=== PATIENT | male | born 1935 | race Caucasian/White ===

== ENCOUNTER 2018-03-20 11:00 | Observation (INO) | payer OTHER ==
[~2018-03-20] VITALS: Ht 172.7 cm; Wt 75.0 kg
--- NOTE | ~2018-03-20 | OP ---
PATIENT NAME: FLORENCE FARIAS MEDICAL RECORD: [id number] :37 LOCATION:D.M2 D.2119 ADMISSION DATE:03/20/18 SURGEON: KARI SO MD DATE OF OPERATION: 03/20/2018 PROCEDURES: Left heart catheterization, selective coronary angiography, right femoral artery approach. CATHETERS: A 5-Lithuanian sheath, 5/4 left and right Castillo, 5/4 pig. The procedure was well tolerated. The patient returned to [place], sheath removed. ExoSeal device was placed. FINDINGS: Left ventriculography in 30-degree BEAVERS view shows basically a mid anterior wall down to the anterior apex and apical inferior region. Overall, function reduced 30% to 35%. CORONARY ANATOMY: LEFT MAIN: Tapers to about a 50% stenosis. 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 CIRCUMFLEX: There is a ramus OM branch without stenosis. There is probably OM1, filling late distally from left to left collaterals. The terminal circumflex itself is diffusely stenosed about 80%, this is a small vessel, not supplying a lot of myocardium. RIGHT CORONARY ARTERY: Has previously placed stent, this is widely patent. Subclavian injection was performed using a multipurpose and glide catheter to get out. This showed some ghost filling of MORENO and a patent stent to the saphenous graft. Aortic root injection was performed. This showed no saphenous graft spilling. No significant AI. IMPRESSION: Changes difficult to tell where the ischemia is coming from. Certainly, given marked collateral sufficiency, the terminal circumflex itself has a small vessel with TANK flow distally, so would not intervene on this at this point. Doubt infarct related artery. Will be continued on antiplatelets. We will add ELIOT inhibitor and beta blockade to medical regime. Pacemaker will be interrogated in the a.m. TRANSINT:[id number] Voice Confirmation ID: [id number] DOCUMENT ID: [id number] KARI SO MD at 1418 CC: [id number] DICTATION DATE: 03/20/18 1731 [employer] FACTORY WORKER: 03/21/18 0129 DIS IN 03/21/18 [facility] [address] [place] [address]
--- NOTE | ~2018-03-20 | HEMODYNAMI ---
PATIENT:FLORENCE FARIAS MEDICAL RECORD: [id number] : 37 LOCATION:DPALMER ADMISSION DATE: 03/20/18 Generatedon:03/20/201817:24 Patient name: FLORENCE FARIAS Patient #: [id number] SSN: : 1935 Date of study: 03/20/2018 Page: Of Hemodynamic Procedure Report Patient Data Patient Demographics Procedure consent was obtained First Name: FLORENCE Gender: Male Last Name: DINORA : 1935 Patient #: [id number] Age: 82 year(s) Race: Unknown Additional ID: [id number] Contact details [address]: [address] [place] [address] State: [place] City: [place] Zip code: [address] Past Medical History Allergies Allergen Reaction Date Comments Reported Other allergy 03/20/2018 cephalexin Admission Admission Data Admission Date: 03/20/2018 Admission Time: 15:58 Procedure Procedure Types Cath Procedure Diagnostic Procedure LHC LHC w/Coronaries w/Grafts Sedation Charges Moderate Sedation up to 15 minutes Procedure Description Procedure Date Procedure Date: 03/20/2018 Procedure Start Time: 16:47 Procedure End Time: 17:24 Procedure Staff Name Function Roshan Myles MD Performing Physician Vivian Villagomez RT Monitor Alphonse Caro RN Nurse Mikael De La Torre RT Scrub Procedure Data Cath Procedure Fluoroscopy Diagnostic fluoroscopy Total fluoroscopy Time: 7 time: 7 min min Diagnostic fluoroscopy Total fluoroscopy dose: dose: 1027 mGy 1027 mGy Contrast Material Contrast Material Type Amount (ml) Isovue 300 165 Entry Location Entry Primary Successful Side Size Upsize Upsize Entry Closure Succes sful Closure Location (Fr) 1 (Fr) 2 (Fr) Remarks Device Remarks Femoral Right 6 Fr Exoseal artery Short Estimated blood loss: 10 ml Diagnostic catheters Device Type Used For End Catheter Placement MULTIPACK JL 4.0 5Fr Left Coronary catheter Angiography MULTIPACK 3DRC 5Fr SVG Angiography catheter MULTIPACK 3DRC 5Fr Internal mammary catheter arteriography DIAGNOSTIC MPA-2 5Fr Internal mammary catheter ([id number]) arteriography MULTIPACK Pigtail 5 Fr LV Angiography catheter MULTIPACK 3DRC 5Fr Right Coronary catheter Angiography MULTIPACK Pigtail 5 Fr Aortic Root catheter Angiography Procedure Complications No complications Procedure Medications Medication Administration Route Dosage Oxygen NC 2 l/min Heparin Flush Bag added to field 2 bags (1000units/500ml NS) 0.9% NaCl I.V. 100 ml/hr Fentanyl I.V. 50 mcg Versed I.V. 1 mg Fentanyl I.V. 50 mcg Versed I.V. 1 mg Heparin Bolus I.V. 4000 units Hemodynamics Rest Heart Rate: 83 (bpm) Pressure Samples Time Site Value (mmHg) Purpose Heart Use Rate(bpm) 16:59 LV 106/44,15 EDP 129 17:00 AO 126/45(88) Pullback 106 17:00 LV 101/11,10 Pullback 106 Gradients Valve Time Site 1 Site 2 Mean SEP/DFP Peak To Heart Use (mmHg) (sec/min) Peak Rate (mmHg) (bpm) Aortic 17:00 LV AO 0 3 0 106 101/11,10 126/45(88) Calculations Valve P-P Mean Valve Index Valve Source Name Gradient Area Flow (cm2) Aortic 0 0 0 0 Snapshots Pre Cath Intra NCS Post Cath Vital Signs Time Heart Resp SPO2 etCO2 NIBP (mmHg) Rhythm Pain Sedation Rate (ipm) (%) (mmHg) Status Level (bpm) 16:39:54 97 17 100 0 166/106(149) NSR 0 (11) 10(A) , No pain 16:44:10 90 17 100 0 137/84(119) NSR 0 (11) 10(A) , No pain 16:48:16 84 16 100 0 101/73(89) NSR 0 (11) 10(A) , No pain 16:52:16 87 17 99 0 110/82(95) NSR 0 (11) 9(A) , No pain 16:56:21 87 16 95 0 104/72(84) NSR 0 (11) 9(A) , No pain 17:00:25 85 17 98 0 110/74(98) NSR 0 (11) 9(A) , No pain 17:04:29 86 17 94 0 113/81(96) NSR 0 (11) 9(A) , No pain 17:08:33 115 16 98 0 94/81(90) NSR 0 (11) 9(A) , No pain 17:13:01 115 17 100 0 118/89(109) NSR 0 (11) 9(A) , No pain 17:17:03 118 13 100 0 132/101(111) NSR 0 (11) 9(A) , No pain 17:21:13 61 17 100 0 127/84(120) NSR 0 (11) 9(A) , No pain Medications Time Medication Route Dose Verified Delivered Reason Notes Effectiveness by by 16:44:31 Oxygen NC 2 Roshan Cunha Per physician l/min St Cesar Caro RN, MD 16:44:39 Heparin Flush added 2 Roshan Bennetty used for Bag to bags St Cesar Caro RN procedure (1000units/500ml field NS) 16:44:58 0.9% NaCl I.V. 100 Roshan Bennetty Per physician ml/hr St Cesar Caro RN, MD 16:49:15 Fentanyl I.V. 50 Roshan Cunha for sedation [facility] [place] Cesar Caro RN, MD 16:49:22 Versed I.V. 1 mg Roshan Bennetty for sedation St Cesar Caro RN, MD 16:57:49 Fentanyl I.V. 50 Roshan Bennetty for sedation mcg [facility] Cesar Caro RN, MD 16:57:53 Versed I.V. 1 mg Roshan Cunha for sedation St Cesar Caro RN, MD 17:02:20 Heparin Bolus I.V. 4000 Roshan Bennetty for units St Cesar Caro RN anticoagulation Procedure Log Time Note 16:06:33 Time tracking: Regular hours (M-F 7:00 - 5:00) 16:06:37 Plan of Care:Hemodynamics will remain stable., Cardiac rhythm will remain stable., Comfort level will be maintained., Respiratory function will remain adequate., Patient/ family verbilizes understanding of procedure., Procedure tolerated without complication., Recovers from procedure without complications.. 16:15:37 Alphonse Caro RN sent for patient. Start room use. 16:32:18 Patient received from ED to CCL 1 Alert and oriented. Tansferred to table in Supine position. 16:32:19 Warm blankets applied, and clara hugger turned on for patient comfort. 16:32:19 Correct patient and procedure confirmed by team. 16:32:21 Signed procedure consent form obtained from patient. 16:32:21 ECG and BP/O2 sat monitors applied to patient. 16:32:22 Full Disclosure recording started 16:38:44 Vital chart was started 16:39:03 Rhythm: sinus rhythm 16:39:14 H&P Date Dictated: 03/20/2018 Emergent; H&P N/A. 16:40:00 Pre-procedure instructions explained to patient. 16:40:01 Pre-op teaching completed and patient verbalized understanding. 16:40:03 Family unavailable. 16:40:05 Patient NPO since Midnight. 16:40:18 Patient allergic to Other allergycephalexin 16:40:20 Is the patient allergic to Iodine/contrast media? No. 16:40:21 Is patient on blood thinner?Yes 16:40:24 ACC The patient was administered the following blood thiners within the last 24 hours: ACCAspirin, ACCPlavix 16:40:26 Patient diabetic? No. 16:40:30 Previous problem with sedation/anesthesia? No ? 16:40:31 Snore? Yes 16:40:32 Sleep apnea? Yes 16:40:34 Deviated septum? No 16:40:35 Opens mouth fully? Yes 16:40:35 Sticks out tongue? Yes 16:40:38 Airway obstruction? No ? 16:40:43 Dentures? Yes IN 16:40:46 Pre procedure: right dorsailis pedis pulse 1+ Palpable, but thready & weak; easily obliterated 16:40:48 Patient pain scale 0/10 ?. 16:40:57 IV patent on arrival in right hand with 0.9% NaCl at [facility]. 16:40:59 Lab results completed and on chart. 16:41:03 Right groin area was prepped with chlora-prep and draped in sterile fashion 16:41:04 Alarms reviewed by R. N. 16:41:04 Sharps counted by scrub and verified by R.N. 16:41:06 Final Timeout: patient, procedure, and site verified with staff and physician. All members of the team are in agreement. 16:41:07 Right groin site verified by team. 16:41:10 Physical assessment completed. ASA score P 2 - A patient with mild systemic disease as per Roshan Myles MD. 16:41:13 Sedation plan: IV Moderate Sedation Medication:Versed, Fentanyl 16:44:31 Oxygen 2 l/min NC was administered by Alphonse Caro RN; Per physician; 16:44:39 Heparin Flush Bag (1000units/500ml NS) 2 bags added to field was administered by Alphonse Caro RN; used for procedure; 16:44:48 Use device set Femoral Dx 16:44:49 ACIST Syringe (52912) opened to sterile field. 16:44:49 Bag Decanter (2002S) opened to sterile field. 16:44:50 Medline Cath Pack ([id number]) opened to sterile field. 16:44:50 DIAGNOSTIC WIRE .035 260cm J wire (330379) opened to sterile field. 16:44:51 ACIST Hand Control (59713) opened to sterile field. 16:44:52 ACIST Manifold (88621) opened to sterile field. 16:44:53 DIAGNOSTIC Multipack 5Fr catheter set (OS6281) opened to sterile field. 16:44:54 Tegaderm 4 x 4 (1626W) opened to sterile field. 16:44:58 0.9% NaCl 100 ml/hr I.V. was administered by Alphonse Caro RN; Per physician; 16:45:11 SHEATH 6FR [place] (OIJ634) opened to sterile field. 16:45:23 Use device set JUDAH PCI 16:45:31 INFLATOR Merit BasixCompak (NW7913) opened to sterile field. 16:45:33 WHISPER 300cm guide wire ([id number]) opened to sterile field. 16:47:31 Procedure started. 16:47:34 Local anesthetic to right femoral artery with Lidocaine 2% by Roshan Myles MD.INITIAL ACCESS ONLY 16:47:43 A 6 Fr Short sheath was inserted into the Right Femoral artery 16:47:50 Baseline sample Acquired. 16:48:26 Zero performed for pressure channel P1 16:49:07 A MULTIPACK JL 4.0 5Fr catheter was advanced over the wire and used for Left Coronary Angiography. 16:49:15 Fentanyl 50 mcg I.V. was administered by Alphonse Caro RN; for sedation; 16:49:22 Versed 1 mg I.V. was administered by Alphonse Caro RN; for sedation; 16:50:23 Procedure type changed to Cath procedure, Diagnostic procedure, LHC, LHC w/Coronaries w/Grafts, Sedation Charges, Moderate Sedation up to 15 minutes 16:50:37 IV Extension Set opened to sterile field. 16:51:09 Catheter removed. 16:52:30 A MULTIPACK 3DRC 5Fr catheter was advanced over the wire and used for Right Coronary Angiography. 16:53:08 A MULTIPACK 3DRC 5Fr catheter was advanced over the wire and used for SVG Angiography. occluded 16:54:53 A MULTIPACK 3DRC 5Fr catheter was advanced over the wire and used for Internal mammary arteriography. 16:54:55 Catheter removed. 16:56:47 GLIDE WIRE ANGLE 260cm (DG9688) opened to sterile field. 16:57:26 A DIAGNOSTIC MPA-2 5Fr catheter ([id number]) was advanced over the wire and used for Internal mammary arteriography. occluded 16:57:34 Exch [place] wire advanced. 16:57:49 Fentanyl 50 mcg I.V. was administered by Alphonse Caro RN; for sedation; 16:57:53 Versed 1 mg I.V. was administered by Alphonse Caro RN; for sedation; 16:58:29 Catheter removed. 16:58:43 A MULTIPACK Pigtail 5 Fr catheter was advanced over the wire and used for LV Angiography. 17:00:00 LV gram done using BEAVERS 17:00:14 Injector settings: Ml/sec: 10, Volume: 20, 17:00:15 Catheter removed. 17:01:33 6 Fr XBLAD 3.5 guide catheter was inserted over the wire 17:02:20 Heparin Bolus 4000 units I.V. was administered by Alphonse Caro RN; for anticoagulation; 17:02:45 WHISPER wire advanced. 17:06:35 Wire removed. 17:06:36 Guide catheter removed. 17:09:14 A MULTIPACK Pigtail 5 Fr catheter was advanced over the wire and used for Aortic Root Angiography. 17:10:09 Catheter removed. 17:10:18 EXOSEAL 6Fr (EX600) opened to sterile field. 17:10:51 Sheath removed intact; hemostasis achieved with Exoseal to the Right Femoral artery. 17:10:59 Procedure ended.(Physican Out) 17:12:37 Fluoroscopy time 07.00 minutes. 17:13:18 Flurop Dose total: 1027 17:13:18 Fluoroscopy dose: 1027 mGy 17:13:41 Contrast amount:Isovue 300 165ml. 17:13:42 Sharps counted by scrub and verified by R.N. 17:13:44 Insertion/operative site no bleeding no hematoma. 17:13:46 Post-op/insertion site Right Femoral artery dressed using a 4 x 4 and Tegaderm. 17:13:50 Post right femoral artery:stable, clean and dry 17:13:51 Post Procedure Pulses reassessed and unchanged 17:13:55 Post-procedure physical assessment completed. ASA score P 2 - A patient with mild systemic disease as per Roshan Myles MD. 17:13:57 Post procedure rhythm: unchanged. 17:13:59 Estimated blood loss: 10 ml 17:14:01 Post procedure instruction explained to patient.Patient verbalizes understanding. 17:14:01 Patient needs reinforcement of post procedure teaching. 17:14:06 Procedure Complication : No complications 17:14:08 See physician's report for complete and final results. 17:15:40 Procedure and supply charges have been captured, reviewed, submitted and are correct. 17:24:01 Report given to PCU. 17:24:05 Vital chart was stopped 17:24:18 Patient transfered to PCU with Bed. 17:24:28 Procedure ended. 17:24:28 Full Disclosure recording stopped 17:24:31 End room use (Document Last) 17:24:31 End room use (Document Last) Device Usage Item Name Manufacture Quantity Catalog Hospital Part Current Minimal L ot# / Number Charge Number Stock Stock Serial# Code ACIST Acist 1 70840 070391 013315 818156 20 Syringe Medical (34288) Systems Inc Bag Microtek 1 193018 44447 778530 5 Decanter Medical Inc. () Medline Medline 1 [id number] 353823 57376 786346 5 Cath Pack ([id number]) DIAGNOSTIC [facility] Carmelo 1 211264 620327 195723 331327 30 WIRE .035 260cm J wire (653078) ACIST Hand Acist 1 86183 322843 229140 021744 5 Control Medical (16651) Systems Inc ACIST Acist 1 75107 212149 817694 004368 5 Manifold Medical (85823) Systems Inc DIAGNOSTIC Cardinal 1 AQ1922 214238 59440 624496 30 Multipack Health 5Fr catheter set (JB4306) Tegaderm 4 3M 1 1626W 450403 496873 532956 5 x 4 (1626W) SHEATH 6FR Terumo 1 AHU791 655257 000859 214523 40 [place] (BCB612) INFLATOR Merit 1 UY5099 486552 555773 696661 15 [facility] BasixCompak (YF4178) WHISPER Hol[place] 1 [id number] 754764 971880 017450 5 300cm guide Vascular wire (5478891ML) MULTIPACK Cardinal 1 603605 5 JL 4.0 5Fr Health catheter IV Hospira 1 46022-07 292661 75206 634362 5 Extension Set MULTIPACK Cardinal 1 132389 5 3DRC 5Fr Health catheter GLIDE WIRE Terumo 1 HG0144 916817 727488 633704 5 ANGLE 260cm (MD4974) DIAGNOSTIC Cardinal 1 809199J 400970 176676 063317 5 MPA-2 5Fr Health catheter (103389R) MULTIPACK Cardinal 1 824464 5 Pigtail 5 Health Fr catheter EXOSEAL 6Fr Cardinal 1 EX600 823823 269445 455920 10 (EX600) Health Signature Audit Homer Stage Time Signature Unsigned Intra-Procedure 03/20/2018 Vivian 5:24:41 PM Counts RT(R) Signatures Monitor : Vivian Signature : Counts RT Date : Time : [place] [id number] [place] [address]
--- NOTE | ~2018-03-20 | HP ---
PATIENT: FLORENCE FARIAS MEDICAL RECORD: [id number] ACCOUNT: [id number] LOCATION:[address] : 36 ADMISSION DATE: 03/20/18 PCP: No PCP HISTORY AND PHYSICAL EXAMINATION HISTORY OF PRESENT ILLNESS: An 82-year-old gentleman with a history of recent intervention at the [place] Saturday. He also had chest pain, shortness of breath, ST-segment changes consistent with hyperacute T-wave changes with anterior occlusion, he was transferred on an emergent basis. PAST MEDICAL HISTORY: Includes, 1. History of hypertension. 2. Hyperlipidemia. PHYSICAL EXAMINATION: GENERAL: Somewhat uncomfortable-appearing gentleman in no acute distress. NECK: No bruits noted. HEART: Regular. LUNGS: Kennedy clear. EXTREMITIES: Pulses 2+ with no edema. DIAGNOSTIC DATA: ECG change as described above. IMPRESSION: Suspect acute stent closure to the pathology laboratory technologist on an urgent basis. TRANSINT:[id number] Voice Confirmation ID: [id number] DOCUMENT ID: [id number] KARI SO MD at 1418 CC: [id number] DICTATION DATE: 03/20/18 1640 WRAPPER LAYER: 03/20/18 1904 DIS IN 03/21/18 [id number] [place] [address]
--- NOTE | ~2018-03-20 | DS ---
PATIENT:FLORENCE FARIAS :37 MEDICAL RECORD: [id number] DISCHARGE SUMMARY ADMISSION DATE: 03/20/18 DISCHARGE DATE: 03/21/18 DATE OF ADMISSION: 03/20/2018. DATE OF DISCHARGE: 03/21/2018. FINAL DIAGNOSIS: Non ST elevation myocardial infarction. BRIEF HISTORY AND HOSPITAL COURSE: This is an 82-year-old gentleman with history of intervention at the [facility] on Saturday began having acute coronary syndrome. Beds were not available at the [facility], so he was transferred here, found to have snowploughed branch, unable to be opened. The EF was about 35%, chronic totally occluded OM, chronic totally occluded LAD. IMPRESSION: Suspect he will continue to have angina. I discussed this in detail. He will be discharged on ARB, beta blockade, Plavix. I will see him back in [place] next available. TRANSINT:[id number] Voice Confirmation ID: [id number] DOCUMENT ID: [id number] KARI SO MD at 1418 CC: [id number] DICTATION DATE: 03/21/18 0742 CREDIT HISTORIAN: 03/21/18 0755 DIS IN 03/21/18 [facility] [address] [place] [address]
[2018-03-20] MEDS ORDERED: ELIQUIS2.5 MG PO (16:13)
[2018-03-20] MEDS ORDERED: PLAVIX75 MG PO (16:14)
[2018-03-20] MEDS ORDERED: LIPITOR80 MG PO (16:14)
[2018-03-20] MEDS ORDERED: FEXMID7.5 MG PO (16:15)
[2018-03-20] MEDS ORDERED: FERROUS SULFAT325 MG PO (16:15)
[2018-03-20] MEDS ORDERED: GABAPENTIN100 MG PO (16:16)
[2018-03-20] MEDS ORDERED: ISOSORBIDE DINI20 MG PO (17:55)
[2018-03-20] MEDS ORDERED: TOPROL XL100 MG PO (17:55)
[2018-03-20] MEDS ORDERED: NITROSTAT0.4 MG SL (17:56)
[2018-03-20] MEDS ORDERED: ACTIGALL 300 M300 MG PO (17:56)
[2018-03-20 18:13] VITALS: BP 115/74; Ht 172.7 cm; Wt 75.0 kg
[2018-03-20 19:05] LABS: BASOPHILS 0.1 % (0-2); EOSINOPHILS 1.9 % (0-7); HEMOGLOBIN 11.1 g/dL (13.5-17.5); IMMATURE GRANULOCYTES 0.3 % (0-5); LYMPHOCYTES 15.8 % (15-50); MCH 28.6 pg (26.0-34.0); MCHC 32.6 g/dL (31.0-37.0); MCV 87.6 fL (80.0-100.0); MEAN PLATELET VOLUME 9.9 fL (7.4-10.4); MONOCYTES 6.6 % (2-11); NEUTROPHILS 75.3 % (40-80); PLATELET COUNT 265 10x3/uL (130-400); RBC 3.88 10x6/uL (4.20-6.10)
[2018-03-20 19:46] LABS: ALBUMIN 3.1 g/dL (3.4-5.0); ALKALINE PHOSPHATASE 82 U/L (46-116); ALT (SGPT) 25 U/L (10-68); BILIRUBIN - TOTAL 0.57 mg/dL (0.2-1.3); CALC OSMOLALITY 278 mosm/kg (275-300); CALCIUM 8.7 mg/dL (8.5-10.1); CARBON DIOXIDE 21.2 mmol/L (21.0-32.0); CHLORIDE - SERUM 106 mmol/L (98-107); GLUCOSE 97 mg/dL (74-106); POTASSIUM - SERUM 4.6 mmol/L (3.5-5.1); PROTEIN - SERUM 6.7 g/dL (6.4-8.2); SODIUM 139 mmol/L (136-145); UREA NITROGEN 15 mg/dL (7-18); eGFR NON AFRICAN AMERICAN 76 mL/min (90-120)
[2018-03-20 20:00] VITALS: BP 119/77
[2018-03-20 20:08] LABS: TROPONIN-I 0.743 ng/mL (0.000-0.060)
[2018-03-20 20:09] LABS: INR 1.67 (0.85-1.17); PROTIME 19.2 SECONDS (11.6-15.0)
[2018-03-20 20:10] LABS: APTT 71.5 SECONDS (22.8-39.4)
[2018-03-21] VITALS: BP 103/64
[2018-03-21 04:00] VITALS: BP 120/78
[2018-03-21 08:27] VITALS: BP 114/77
[2018-03-21] MEDS ORDERED: COZAAR25 MG PO (14:01)
[2018-03-21] MEDS ORDERED: ASPIRIN81 MG PO (14:01)
== END 2018-03-21 09:00 | disposition home or self-care (01) ==
LOC: EDSTATUS 11:00 → D.M2 15:58 → D.ER 15:58 → D.CATH 15:58 → OBSVTIME 15:58 → D.M2 17:26 → D.CATH 17:26 → D.M2 03-21 09:00
PROVIDERS: Emergency Medicine
DX: I21.4 Non-ST elevation (NSTEMI) myocardial infarction (principal); I25.110 Atherosclerotic heart disease of native coronary artery with unstable angina pectoris; I25.82 Chronic total occlusion of coronary artery

== ENCOUNTER 2019-06-22 21:11 | Inpatient (IN) | payer OTHER ==
[~2019-06-22] VITALS: Ht 172.7 cm; Wt 76.4 kg
--- NOTE | ~2019-06-22 | HEMODYNAMI ---
PATIENT:FLORENCE FARIAS MEDICAL RECORD: [id number] : 37 [facility] [id number] ADMISSION DATE: 06/22/19 Generatedon:06/24/201910:08 Patient name: FLORENCE FARIAS Patient #: [id number] : 1935 Date of study: 06/24/2019 Page: Of Hemodynamic Procedure Report Patient Data Patient Demographics Procedure consent was obtained First Name: FLORENCE Gender: Male Last Name: DINORA : 1935 Patient #: [id number] Age: 83 year(s) Race: SSN: [id number] Additional ID: [id number] Contact details [address]: [address] [place] [address] State: [place] City: [place] Zip code: [address] Past Medical History History of disease Date Diagnosis Comments CAD Allergies Allergen Reaction Date Comments Reported Other allergy 03/20/2018 cephalexin Other allergy 06/23/2019 cephlexin Other allergy 06/24/2019 CEPHALEXIN Admission Admission Data Admission Date: 06/22/2019 Admission Time: 21:47 Arrival Date: 06/22/2019 Arrival Time: 21:47 Admit Source: Emergency Insurance Payor: [facility] Room #: D.[address]10 [facility] #: [id number] Height (in.): 68.11 BSA: 1.92 (m2) Height (cm.): 173 BMI: 26.06 (kg/m2) Weight (lbs.): 171.96 Weight (kg.): 78 Lab Results Lab Result Date: 06/24/2019 Lab Result Time: 0:00 Biochemistry Name Units Result Min Max BUN mg/dl 24 --(----)-* 7 18 CK-MB ng/ml 2.4 --(--*-)-- 0 3.6 Creatinine mg/dl 1.2 --(---*)-- 0.6 1.3 eGFR ml/min 61.96523 *-(----)-- 90 120 NONAFRICAN Troponin l ng/ml 1.41 --(----)-* 0 0.06 CBC Name Units Result Min Max Hematocrit % 40.7 -*(----)-- 42 54 Hemoglobin g/dl 12.8 -*(----)-- 13.5 17.5 Procedure Procedure Types Cath Procedure Diagnostic Procedure Sedation Charges Moderate Sedation up to 30 minutes PCI Procedure Coronary Atherectomy Atherectomy w/Stent Coronary Initial Hemochron ACT Test Procedure Description Procedure Date Procedure Date: 06/24/2019 Procedure Start Time: 9:33 Procedure End Time: 10:04 Procedure Staff Name Function Gatito Haji MD Performing Physician Nadja Dominguez RT Scrub Dedrick Caballero RN Nurse Marta Burgess RN Nurse Chio Kennedy RT Monitor Indication Chest pain Procedure Data Cath Procedure Fluoroscopy Diagnostic fluoroscopy Total fluoroscopy Time: time: 12.1 min 12.1 min Diagnostic fluoroscopy Total fluoroscopy dose: 658 dose: 658 mGy mGy Contrast Material Contrast Material Type Amount (ml) Isovue 300 118 Entry Location Entry Primary Successful Side Size Upsize Upsize Entry Closure Succes sful Closure Location (Fr) 1 (Fr) 2 (Fr) Remarks Device Remarks Femoral Left 7 Fr Exoseal artery Short Estimated blood loss: 10 ml Procedure Complications No complications Procedure Medications Medication Administration Route Dosage Oxygen etCO2 Nasal cannula 2 l/min Lidocaine 2% added to field 20 Heparin Flush Bag added to field 2 bags (1000units/500ml NS) 0.9% NaCl I.V. 100 ml/hr Benadryl I.V. 50 mg Fentanyl I.V. 50 mcg Versed I.V. 1 mg Heparin Bolus I.V. 4000 units Integrilin (Bolus 6.8 ml 2mg/ml) Fentanyl I.V. 50 mcg Versed I.V. 1 mg Plavix P.O. 600 mg Hemodynamics Rest BSA: 1.92 (m2) HGB: 12.8 (g/dl) O2 Consumption: Estimated: 218.96 (ml/min) O2 Co nsumption indexed: Estimated:114.04 (ml/min/m) Heart Rate: 70 (bpm) Snapshots Pre Cath Intra NCS Post Cath Vital Signs Time Heart Resp SPO2 etCO2 NIBP (mmHg) Rhythm Pain Sedation Rate (ipm) (%) (mmHg) Status Level (bpm) 9:09:47 67 19 99 20.2 171/89(125) Paced 0 (11) 10(A) , No pain 9:14:07 72 17 98 17.2 162/96(112) Paced 0 (11) 10(A) , No pain 9:18:27 71 16 96 17.9 155/86(107) Paced 0 (11) 10(A) , No pain 9:22:43 73 18 98 16.4 145/83(123) Paced 0 (11) 10(A) , No pain 9:26:59 73 16 96 10.4 139/86(119) Paced 0 (11) 10(A) , No pain 9:31:11 28 17 96 0 137/80(122) Paced 0 (11) 10(A) , No pain 9:35:19 28 18 97 0 116/62(92) Paced 0 (11) 9(A) , No pain 9:39:27 67 20 95 16.4 90/67(79) Paced 0 (11) 9(A) , No pain 9:44:13 65 19 97 1.4 121/73(92) NSR w/ ST 0 (11) 9(A) Elevation , No pain 9:48:25 60 17 97 0 118/73(102) NSR w/ ST 0 (11) 9(A) Elevation , No pain 9:52:35 59 18 97 0.7 123/70(106) NSR w/ ST 0 (11) 9(A) Elevation , No pain 9:56:45 62 15 97 0 135/78(120) NSR w/ ST 0 (11) 10(A) Elevation , No pain 10:00:59 61 14 96 0 140/77(116) Paced 0 (11) 10(A) , No pain 10:05:13 62 12 94 0 124/77(96) Paced 0 (11) 10(A) , No pain Medications Time Medication Route Dose Verified Delivered Reason Notes Effectiveness by by 9:08:45 Oxygen etCO2 2 Gatito Marta used for Nasal l/min Adithya Burgess procedure cannula RN 9:08:52 Lidocaine 2% added 20ml Gatito Mederos for local to vial Adithya Haji MD anesthetic field 9:08:58 Heparin Flush added 2 Gatito Mederos used for Bag to bags Adithya Haji MD procedure (1000units/500ml field NS) 9:09:06 0.9% NaCl I.V. 100 Gatito Tse Per physician ml/hr Adithya Caballero RN 9:11:48 Benadryl I.V. 50 mg Marta Marta Per physician Jenifer Burgess RN RN 9:33:11 Fentanyl I.V. 50 Marta Marta for sedation mcg Jenifer Burgess RN RN 9:33:19 Versed I.V. 1 mg Marta Marta for sedation Jenifer Burgess RN RN 9:37:33 Heparin Bolus I.V. 4000 Marta Marta for hepar in units Jenifer Burgess anticoagulation verified RN RN with dedrick caballero rn 9:39:24 Integrilin 6.8 Marta Marta 3.2ml (Bolus 2mg/ml) ml Jenifer Burgess wasted RN RN 9:54:18 Fentanyl I.V. 50 Marta Marta for sedation mcg Jenifer Burgess RN RN 9:54:23 Versed I.V. 1 mg Marta Marta for sedation Jenifer Burgess RN RN 10:02:34 Plavix P.O. 600 Marta Marta for mg Jenifer Burgess antiplatelet RN RN therapy Procedure Log Time Note 8:03:24 Informed consent obtained and on chart 8:03:38 Patient Height : 68.11 inches 8:03:38 Patient Weight : 171.96 lbs 8:03:52 Indication : Chest pain 8:04:59 Diagnostic Cath Status : Urgent 8:05:11 Procedure Status Urgent Heart Cath (IP). 8:05:23 Time tracking: Regular hours (M-F 7:00 - 5:00) 8:05:31 Plan of Care:Hemodynamics will remain stable., Cardiac rhythm will remain stable., Comfort level will be maintained., Respiratory function will remain adequate., Patient/ family verbilizes understanding of procedure., Procedure tolerated without complication., Recovers from procedure without complications.. 8:13:48 Lab Result : Creatinine 1.2 mg/dl 8::48 Lab Result : BUN 24 mg/dl 8::48 Lab Result : CK-MB 2.4 ng/ml 8:13:48 Lab Result : Hemoglobin 12.8 g/dl 8::48 Lab Result : Hematocrit 40.7 % 8:13:48 Lab Result : eGFR NONAFRICAN 61.64639 ml/min 8:13:48 Lab Result : Troponin l 1.41 ng/ml 8:15:30 Patient allergic to Other allergyCEPHALEXIN 8:23:44 Procedure delayed due to: DUE TO PT WANTING TO WAIT FOR HIS FAMILY 8:26:26 Lab results completed and on chart. 8:26:33 Stress Test: no; N/A ? 8:26:40 Risk of Mortality: 1.7 8:26:45 Risk of blood transfusion: 4.6 8:26:52 Risk of DWAIN: 7.8 8:27:34 ----Pre-sedation anethsthesia assessment.---- 8:27:39 Previous problem with sedation/anesthesia? No ? 8:27:42 Snore? Yes 8:27:53 Sleep apnea? Unknown 8:27:57 Deviated septum? No 8:28:08 Opens mouth fully? Yes 8:28:10 Sticks out tongue? Yes 8:28:19 Airway obstruction? Unknown ? 8:46:53 Dedrick Caballero RN sent for patient. Start room use. 8:53:55 ACC Patient presents with Non-STEMI CCS Anginal Class 4--Inability to carry out any physical activity w/o angina. Angina may occur at rest. 9:01:38 Patient received from ICU to CCL 1 Alert and oriented. Tansferred to table in Supine position. 9:01:39 Warm blankets applied, and clara hugger turned on for patient comfort. 9:01:40 Correct patient and procedure confirmed by team. 9:01:42 ECG and BP/O2 sat monitors applied to patient. 9:08:34 Vital chart was started 9:08:45 Oxygen 2 l/min etCO2 Nasal cannula was administered by Marta Burgess RN; used for procedure; Verbal order read back and verified. 9:08:52 Lidocaine 2% 20ml vial added to field was administered by Gatito Haji MD; for local anesthetic; Verbal order read back and verified. 9:08:58 Heparin Flush Bag (1000units/500ml NS) 2 bags added to field was administered by Gatito Haji MD; used for procedure; Verbal order read back and verified. 9:09:02 Baseline sample Acquired. 9:09:06 0.9% NaCl 100 ml/hr I.V. was administered by Dedrick Caballero RN; Per physician; Verbal order read back and verified. 9:09:10 Rhythm: sinus rhythm 9:09:12 Full Disclosure recording started 9:09:15 H&P Date Dictated: 06/24/2019 Within 30 days and on chart.. 9:09:16 Pre-procedure instructions explained to patient. 9:09:16 Pre-op teaching completed and patient verbalized understanding. 9:09:17 Family in patients room. 9:09:20 Is the patient allergic to Iodine/contrast media? No. 9:09:36 Pre procedure: left dorsailis pedis pulse 1+ Palpable, but thready & weak; easily obliterated 9:09:48 IV patent on arrival in left antecubital with 0.9% NaCl at [facility]. 9:09:53 Left groin area was prepped with chlora-prep and draped in sterile fashion 9:09:55 Alarms reviewed by R. N. 9:09:55 Sharps counted by scrub and verified by R.N. 9:10:09 Use device set CATH PACK 9:10:10 ACIST Syringe (21677) opened to sterile field. 9:10:11 ACIST Hand Control (89646) opened to sterile field. 9:10:11 ACIST Manifold (52604) opened to sterile field. 9:10:12 Medline Cath Pack ([id number]) opened to sterile field. 9:10:12 Bag Decanter (2002S) opened to sterile field. 9:10:13 EMERALD Guide Wire (502-482) opened to sterile field. 9:10:26 SHEATH 6FR Eight Mile (ZUF681) opened to sterile field. 9:10:27 CHOICE PT Extra Support 182cm wire ([id number]) opened to sterile field. 9:10:27 INFLATOR Merit BasixCompak (JV2299) opened to sterile field. 9:10:37 Airway obstruction? Yes COPD 9:10:45 Patient diabetic? No. 9:10:51 Is patient on blood thinner?Yes 9:11:01 Dentures? No ? 9:11:48 Benadryl 50 mg I.V. was administered by Marta Burgess RN; Per physician; Verbal order read back and verified. 9:12:03 ELIQUIS AND PLAVIX LAST DOSE ON THE 9:20:26 Zero performed for pressure channel P1 9:30:09 IV started by Dedrick Caballero RN inLt subclavian with a 22 gauge IV catheter with 0.9% NaCl at KVO. 9:30:30 IV left antecubital D/C'd due to other.. 9:31:57 --------ALL STOP TIME OUT------ ::57 Final Timeout: patient, procedure, and site verified with staff and physician. All members of the team are in agreement. 9:32:00 Left groin site verified by team. 9:32:03 Fire Safety Assessment: A--An alcohol-based skin anteseptic being used preoperatively., C--Open oxygen or nitrous oxide is being used., E--There are other possible contributors. 9:32:06 Physical assessment completed. ASA score P 3 - A patient with severe systemic disease as per Gatito Haji MD. 9:32:10 2) 60-89 Mildly reduced kidney function, and other findings (as for stage 1) point to kidney disease. 9:32:15 Maximum allowable contrast dose (3.7 X eGFR X 0.75)169 ml. 9:32:17 Sedation plan: IV Moderate Sedation Medication:Versed, Fentanyl 9:32:55 SHEATH 7FR [place] (YDE484) opened to sterile field. 9:32:59 Procedure started. 9:33:11 Fentanyl 50 mcg I.V. was administered by Marta Burgess RN; for sedation; Verbal order read back and verified. 9:33:19 Versed 1 mg I.V. was administered by Marta Burgess RN; for sedation; Verbal order read back and verified. 9:33:32 Local anesthetic to left femerol artery with Lidocaine 2% by Gatito Haji MD.INITIAL ACCESS ONLY 9:33:43 GUIDE 7FR AR 1.0 SH catheter ([id number]) opened to sterile field. 9:35:17 A 7 Fr Short sheath was inserted into the Left Femoral artery 9:36:01 7 Fr AR 1 SH guide catheter was inserted over the wire 9:37:33 Heparin Bolus 4000 units I.V. was administered by Marta Burgess RN; for anticoagulation; heparin verified with dedrick caballero rn Verbal order read back and verified. 9:38:07 CHOICE ES 182 wire advanced. 9:38:53 Pre PCI Site: Stebbins mRCA has 99% stenosis. 9:38:56 Wire advanced across lesion. 9:39:24 Integrilin (Bolus 2mg/ml) 6.8 ml was administered by Marta Burgess RN; ; 3.2ml wasted Verbal order read back and verified. 9:39:43 Inflate balloon Inflation number: 1 A EUPHORA 3.5 x 15 Balloon ([id number]) was prepped and advanced across the Mid RCA , then inflated to 21 JEANNETTE for 0:00 (min:sec) . 9:40:01 Inflation number: 1 The EUPHORA 3.5 x 15 Balloon ([id number]) was reinflated across the Prox RCA , to 21 JEANNETTE for 0:00 (min:sec) . 9:40:44 Balloon removed over the wire. 9:40:51 LASER ELCA 0.9 Rx atherectomy catheter (180151) opened to sterile field. 9:44:04 Laser pass to mRCA with Fluence of 80 and Rate of 40. 9:46:54 Laser catheter removed. 9:46:55 Laser total pulses delivered: 3392 9:46:57 Laser total treatment time: 1 minutes 24 seconds 9:48:34 The NC EUPHORA 3.5 x 12 balloon ([id number]) was advanced and then removed because of failure to cross lesion 9:48:48 CHOICE PT Extra Support 182cm wire ([id number]) opened to sterile field. 9:49:10 CHOICE ES 182 ADVNACED A LEONORA WIRE 9:49:48 Inflation number: 2 The NC EUPHORA 3.5 x 12 balloon ([id number]) was reinflated across the Mid RCA , to 25 JEANNETTE for 0:00 (min:sec) . 9:50:09 Inflation number: 2 The NC EUPHORA 3.5 x 12 balloon ([id number]) was reinflated across the Prox RCA , to 25 JEANNETTE for 0:00 (min:sec) . 9:50:23 Inflation number: 3 The NC EUPHORA 3.5 x 12 balloon ([id number]) was reinflated across the Prox RCA , to 23 JEANNETTE for 0:00 (min:sec) . 9:51:07 Inflation number: 3 The NC EUPHORA 3.5 x 12 balloon ([id number]) was reinflated across the Mid RCA , to 25 JEANNETTE for 0:00 (min:sec) . 9:51:26 Balloon removed over the wire. 9:53:22 LEONORA WIRE REMOVED 9:53:50 Place stent Inflation Number: 4 A NERY RX 3.5 x 18 stent ([id number]) was prepped and advanced across the Mid RCA . The stent was deployed at 21 JEANNETTE for 0:00 (min:sec) . 9:54:12 Inflation number: 5 The stent balloon was then re-inflated across the Mid RCA to 21 JEANNETTE for 0:00 (min:sec) . 9:54:18 Fentanyl 50 mcg I.V. was administered by Marta Burgess RN; for sedation; Verbal order read back and verified. 9:54:23 Versed 1 mg I.V. was administered by Marta Burgess RN; for sedation; Verbal order read back and verified. 9:54:27 Stent catheter was removed intact over wire. 9:56:02 Place stent Inflation Number: 4 A NERY RX 4.0 x 12 stent ([id number]) was prepped and advanced across the Prox RCA . The stent was deployed at 19 JEANNETTE for 0:00 (min:sec) . 9:56:24 Stent catheter was removed intact over wire. 9:57:39 Place stent Inflation Number: 6 A NERY RX 3.0 x 18 stent ([id number]) was prepped and advanced across the Mid RCA . The stent was deployed at 17 JEANNETTE for 0:00 (min:sec) . 9:57:57 Wire removed. 9:58:27 Stent catheter was removed intact over wire. 9:58:27 Guide catheter removed. 9:58:38 EXOSEAL 7Fr (EX700) opened to sterile field. 9:59:27 Sheath removed intact; hemostasis achieved with Exoseal to the Left Femoral artery. 9:59:29 Procedure ended.(Physican Out) 10:01:52 Fluoroscopy time 12.10 minutes. 10:02:00 Fluoroscopy dose: 658 mGy 10:02:00 Flurop Dose total: 658 10:02:08 Dose Area Product 31334 mGy/cm. 10:02:18 Contrast amount:Isovue 300 118ml. 10:02:19 Maximum allowable dose exceeded? No. 10:02:21 Sharps counted by scrub and verified by R.N. 10:02:26 Post-op/insertion site Left Femoral artery dressed using a 4 x 4 and Tegaderm. 10:02:28 Post-procedure physical assessment completed. ASA score P 3 - A patient with severe systemic disease as per Gatito Haji MD. 10:02:32 Post procedure rhythm: unchanged. 10:02:33 Estimated blood loss: 10 ml 10:02:34 Plavix 600 mg P.O. was administered by Marta Burgess RN; for antiplatelet therapy; Verbal order read back and verified. 10:02:34 Post procedure instruction explained to patient.Patient verbalizes understanding. 10:02:35 Patient needs reinforcement of post procedure teaching. 10:03:06 Procedure type changed to Cath procedure, Diagnostic procedure, Sedation Charges, Moderate Sedation up to 30 minutes, PCI procedure, Coronary Atherectomy, Atherectomy w/Stent Coronary Initial, Hemochron ACT Test 10:03:22 ACT drawn and resulted at 196 seconds. (normal therapeutic range 180-240 seconds). 10:04:12 Procedure and supply charges have been captured, reviewed, submitted and are correct. 10:04:20 Procedure Complication : No complications 10:04:22 Vital chart was stopped 10:04:24 [facility] Findings: MVD- PCI performed (see procedure note) 10:04:27 Operative report dictated upon procedure completion. 10:04:28 See physician's report for complete and final results. 10:04:33 Report given to ICU. 10:04:36 Patient transfered to ICU with Bed. 10:04:38 Procedure ended. 10:04:38 Full Disclosure recording stopped 10:04:46 ACC-PCI Only Patient was given prescriptions, or instructed by Gatito Haji MD to start/continue the following medications upon discharge: Plavix 10:04:47 End room use (Document Last) 10:07:24 End room use (Document Last) 10:07:49 End room use (Document Last) Intervention Summary Intervention Notes Time ActionType Lesion and Equipment Used Action# Pressure Duration Attributes 9:39:43 Inflate Mid RCA EUPHORA 3.5 x 1 21 00:00 balloon 15 Balloon ([id number]) 9:40:01 Reinflate Prox RCA EUPHORA 3.5 x 1 21 00:00 balloon 15 Balloon ([id number]) 9:48:34 Discard NC EUPHORA 3.5 Balloon x 12 balloon ([id number]) 9:49:48 Reinflate Mid RCA NC EUPHORA 3.5 2 25 00:00 balloon x 12 balloon ([id number]) 9:50:09 Reinflate Prox RCA NC EUPHORA 3.5 2 25 00:00 balloon x 12 balloon ([id number]) 9:50:23 Reinflate Prox RCA NC EUPHORA 3.5 3 23 00:00 balloon x 12 balloon ([id number]) 9:51:07 Reinflate Mid RCA NC EUPHORA 3.5 3 25 00:00 balloon x 12 balloon ([id number]) 9:53:50 Place stent Mid RCA NERY RX 3.5 x 4 21 00:00 18 stent ([id number]) 9:54:12 Reinflate Mid RCA NERY RX 3.5 x 5 21 00:00 stent 18 stent balloon ([id number]) 9:56:02 Place stent Prox RCA NERY RX 4.0 x 4 19 00:00 12 stent ([id number]) 9:57:39 Place stent Mid RCA NERY RX 3.0 x 6 17 00:00 18 stent ([id number]) Device Usage Item Name Manufacture Quantity Catalog Number [facility] Part Current M inimal Lot# / Charge Number Stock Stock Serial# Code ACIST Syringe Acist 1 80507 965325 076853 698455 2 0 (22115) Medical Systems Inc ACIST Hand Acist 1 94751 418474 315040 067215 5 Control Medical (78936) Systems Inc ACIST Manifold Acist 1 33739 697494 529177 166841 5 (89082) Medical Systems Inc Medline Cath Medline 1 [id number] 588962 65291 560158 5 Pack ([id number]) Bag Decanter Microtek 1 002825 58909 476885 5 () Medical Inc. EMERALD Guide Cardinal 1 837-071 777726 383204 727628 5 Wire (528-685) Health SHEATH 6FR Terumo 1 HUT352 651581 488693 976082 4 0 Eight Mile (BYI236) CHOICE PT Otis 2 [id number] 695268 808718 922646 5 Extra Support Scientific 182cm wire ([id number]) INFLATOR Merit Merit 1 SD7056 044593 956700 654272 1 5 DrAvailable Medical (MR4543) SHEATH 7FR Terumo 1 CHQ169 068105 614789 453927 5 Eight Mile (PLQ414) GUIDE 7FR AR Medtronic 1 [id number] 912007 359073 208201 0 1.0 SH catheter ([id number]) EUPHORA 3.5 x Medtronic 1 [id number] 309879 648914 702932 5 [id number] 15 Balloon ([id number]) LASER ELCA 0.9 Jaun 1 110-004 375587 521007 940548 5 Rx atherectomy [facility] catheter (920265) (478659) NC EUPHORA 3.5 Medtronic 1 [id number] 851943 111089 176742 1 [id number] x 12 balloon ([id number]) NERY RX 3.5 x Medtronic 1 [id number] 885305 8995240 441356 5 [id number] 18 stent ([id number]) NERY RX 4.0 x Medtronic 1 [id number] 979200 4534923 805469 5 [id number] 12 stent ([id number]) NERY RX 3.0 x Medtronic 1 [id number] 921332 5578835 487606 5 [id number] 18 stent ([id number]) EXOSEAL 7Fr Cardinal 1 EX700 090827 075947 616331 5 (EX700) Health Signature Audit [place] Stage Time Signature Unsigned Intra-Procedure 06/24/2019 Chio Kennedy 10:07:24 AM RT(R) Intra-Procedure 06/24/2019 Dedrick Caballero RN 10:07:49 AM Intra-Procedure 06/24/2019 Gatito Haji 10:08:42 AM [facility] [address] [place] [address]
--- NOTE | ~2019-06-22 | HEMODYNAMI ---
PATIENT:FLORENCE FARIAS MEDICAL RECORD: [id number] : 37 LOCATION:[id number] ADMISSION DATE: 06/22/19 Generatedon:06/23/201915:34 Patient name: FLORENCE FARIAS Patient #: [id number] : 1935 Date of study: 06/23/2019 Page: Of Hemodynamic Procedure Report Patient Data Patient Demographics Procedure consent was obtained First Name: FLORENCE Gender: Male Last Name: DINORA : 1935 Patient #: [id number] Age: 83 year(s) Race: SSN: [id number] Additional ID: [id number] Contact details Address: [address] [place] [address] State: [place] City: [place] Zip code: [address] Past Medical History Allergies Allergen Reaction Date Comments Reported Other allergy 03/20/2018 cephalexin Other allergy 06/23/2019 cephlexin Admission Admission Data Admission Date: 06/22/2019 Admission Time: 21:47 Arrival Date: 06/22/2019 Arrival Time: 21:47 Admit Source: Emergency Insurance Payor: [facility] Room #: D.2310 [facility] #: [id number] Height (in.): 68.11 BSA: 1.92 (m2) Height (cm.): 173 BMI: 26.06 (kg/m2) Weight (lbs.): 171.96 Weight (kg.): 78 Lab Results Lab Result Date: 06/23/2019 Lab Result Time: 0:00 Biochemistry Name Units Result Min Max BUN mg/dl 23 --(----)-* 7 18 Creatinine mg/dl 1.1 --(--*-)-- 0.6 1.3 eGFR ml/min 67.29579 *-(----)-- 90 120 NONAFRICAN CBC Name Units Result Min Max Hemoglobin g/dl 12.7 -*(----)-- 13.5 17.5 Procedure Procedure Types Cath Procedure Diagnostic Procedure LHC LHC w/Coronaries w/Grafts Sedation Charges Moderate Sedation up to 30 minutes Procedure Description Procedure Date Procedure Date: 06/23/2019 Procedure Start Time: 14:59 Procedure End Time: 15:31 Procedure Staff Name Function Mark Montez MD Performing Physician Tania Gomez RT Monitor Nia Puri RT Scrub Dedrick Caballero RN Nurse Indication NSTEMI Procedure Data Cath Procedure Fluoroscopy Diagnostic fluoroscopy Total fluoroscopy Time: 9.5 time: 9.5 min min Diagnostic fluoroscopy Total fluoroscopy dose: dose: 1074 mGy 1074 mGy Contrast Material Contrast Material Type Amount (ml) Isovue 370 136 Entry Location Entry Primary Successful Side Size Upsize Upsize Entry Closure Succes sful Closure Location (Fr) 1 (Fr) 2 (Fr) Remarks Device Remarks Femoral Right 5 Fr Exoseal artery Estimated blood loss: 10 ml Diagnostic catheters Device Type Used For End Catheter Placement MULTIPACK JL 4.0 5Fr Procedure catheter DIAGNOSTIC AR MOD 5Fr Procedure Catheter ([id number]) DIAGNOSTIC Pigtail 5Fr Ventriculography catheter ([id number]) DIAGNOSTIC IMT 5Fr Procedure Catheter ([id number]) DIAGNOSTIC AR2 MOD 5 Fr Procedure catheter ([id number]) MULTIPACK Pigtail 5 Fr Ventriculography catheter MULTIPACK 3DRC 5Fr Procedure catheter Procedure Medications Medication Administration Route Dosage Oxygen etCO2 Nasal cannula 2 l/min Lidocaine 2% added to field 20 Heparin Flush Bag added to field 2 bags (1000units/500ml NS) 0.9% NaCl I.V. 100 ml/hr Versed I.V. 1 mg Fentanyl I.V. 50 mcg Hemodynamics Rest BSA: 1.92 (m2) HGB: 12.7 (g/dl) O2 Consumption: Estimated: 217.85 (ml/min) O2 Co nsumption indexed: Estimated:113.46 (ml/min/m) Heart Rate: 69 (bpm) Pressure Samples Time Site Value (mmHg) Purpose Heart Use Rate(bpm) 15:17 LV 108/6,9 Snapshot 60 15:18 AO 132/64(90) Pullback 64 15:18 LV 139/6,16 Pullback 64 Gradients Valve Time Site 1 Site 2 Mean SEP/DFP Peak To Heart Use (mmHg) (sec/min) Peak Rate (mmHg) (bpm) Aortic 15:18 LV AO 8 15 7 64 139/6,16 132/64(90) Calculations Valve P-P Mean Valve Index Valve Source Name Gradient Area Flow (cm2) Aortic 7 8 7 8 Snapshots Pre Cath Intra NCS Post Cath Vital Signs Time Heart Resp SPO2 etCO2 NIBP (mmHg) Rhythm Pain Sedation Rate (ipm) (%) (mmHg) Status Level (bpm) 14:42:00 48 24 96 0 153/91(142) Paced 0 (11) 10(A) , No pain 14:47:09 69 17 95 0 163/79(129) Paced 0 (11) 10(A) , No pain 14:51:25 40 18 99 0 143/90(125) Paced 0 (11) 10(A) , No pain 14:55:38 56 20 98 26.9 138/83(112) Paced 0 (11) 10(A) , No pain 14:59:53 62 15 96 18.7 114/67(86) Paced 0 (11) 9(A) , No pain 15:03:57 63 12 97 23.2 118/73(97) Paced 0 (11) 9(A) , No pain 15:08:01 91 10 99 23.9 121/75(104) Paced 0 (11) 9(A) , No pain 15:12:09 61 11 98 32.9 118/67(84) Paced 0 (11) 9(A) , No pain 15:16:17 59 11 99 33.6 130/63(105) Paced 0 (11) 9(A) , No pain 15:20:27 62 13 99 35.1 130/71(95) Paced 0 (11) 9(A) , No pain 15:24:36 63 11 99 21.6 122/71(100) Paced 0 (11) 10(A) , No pain 15:28:42 60 11 99 0 132/76(107) Paced 0 (11) 10(A) , No pain Medications Time Medication Route Dose Verified Delivered Reason Notes Eff ectiveness by by 14:42:26 Oxygen etCO2 2 Mark Buffie used for Nasal l/min Tc Caballero glazier structural glass cannula 14:42:36 Lidocaine 2% added 20ml Mark Mark for local to vial Tc Montez MD anesthetic field 14:42:57 Heparin Flush added 2 Mark Mark used for Bag to bags Tc Montez MD procedure (1000units/500ml field NS) 14:43:05 0.9% NaCl I.V. 100 Mark Tse Per ml/hr Tc Caballero RN physician 14:56:37 Versed I.V. 1 mg Mark Tse for Tc Caballero RN sedation 14:56:42 Fentanyl I.V. 50 Mark Alfaie for [facility] [place] [place] Tc Caballero RN sedation Procedure Log Time Note 14::44 Diagnostic Cath Status : Urgent 14::08 Indication : NSTEMI 14::29 Informed consent obtained and on chart 14:22:28 Admit Source: Emergency department 14::31 Arrival Date: 06/22/2019 9:47:00 PM 14:22:50 Insurance Payor : [facility] 14:23:00 Patient Height : 68.11 inches 14:23:05 Patient Weight : 171.96 lbs 14:24:29 Lab Result : Creatinine 1.1 mg/dl 14:24:29 Lab Result : BUN 23 mg/dl 14:24:29 Lab Result : eGFR NONAFRICAN 67.73998 ml/min 14:24:29 Lab Result : Hemoglobin 12.7 g/dl 14:24:36 Dedrick Caballero RN sent for patient. Start room use. 14:24:38 Time tracking: Regular hours (M-F 7:00 - 5:00) 14:24:43 Plan of Care:Hemodynamics will remain stable., Cardiac rhythm will remain stable., Comfort level will be maintained., Respiratory function will remain adequate., Patient/ family verbilizes understanding of procedure., Procedure tolerated without complication., Recovers from procedure without complications.. 14:26:51 Risk of Mortality: 0.3 14:26:54 Risk of blood transfusion: 1.8 14:26:58 Risk of DWAIN: 1.3 14:27:07 2) 60-89 Mildly reduced kidney function, and other findings (as for stage 1) point to kidney disease. 14:40:48 Vital chart was started 14:42:26 Oxygen 2 l/min etCO2 Nasal cannula was administered by Dedrick Caballero RN; used for procedure; Verbal order read back and verified. 14:42:36 Lidocaine 2% 20ml vial added to field was administered by Mark Montez MD; for local anesthetic; Verbal order read back and verified. 14:42:57 Heparin Flush Bag (1000units/500ml NS) 2 bags added to field was administered by Mark Montez MD; used for procedure; Verbal order read back and verified. 14:43:05 0.9% NaCl 100 ml/hr I.V. was administered by Dedrick Caballero RN; Per physician; Verbal order read back and verified. 14:47:20 Warm blankets applied, and clara hugger turned on for patient comfort. 14:47:21 Correct patient and procedure confirmed by team. 14:47:21 ECG and BP/O2 sat monitors applied to patient. 14:47:22 Baseline sample Acquired. 14:47:30 Rhythm: atrial flutter 14:47:32 Full Disclosure recording started 14:47:40 H&P Date Dictated: 06/22/2019 Within 30 days and on chart., H&P Addendum completed by physician on day of procedure. (MUST COMPLETE FOR ALL OUTPATIENTS). 14:47:41 Pre-procedure instructions explained to patient. 14:47:44 Family in patients room. 14:47:46 Patient NPO since Midnight. 14:48:05 Patient allergic to Other allergycephlexin 14:48:14 Is the patient allergic to Iodine/contrast media? No. 14:48:16 Was the patient premedicated? Yes 14:48:27 Patient diabetic? No. 14:48:32 Snore? Unknown 14:48:34 Sleep apnea? Unknown 14:48:38 Dentures? Unknown ? 14:48:44 Patient pain scale 0/10 ?. 14:48:50 IV patent on arrival in left forearm with 0.9% NaCl at [facility]. 14:48:54 Lab results completed and on chart. 14:48:59 Right groin area was prepped with chlora-prep and draped in sterile fashion 14:49:00 Physician paged 14:50:18 Baseline sample Acquired. 14:50:29 ACC The patient was administered the following blood thiners within the last 24 hours: ACCPlavix, Eliquis 14:54:34 Physician arrived 14:54:34 --------ALL STOP TIME OUT------ 14:54:35 Final Timeout: patient, procedure, and site verified with staff and physician. All members of the team are in agreement. 14:54:36 Right groin site verified by team. 14:54:40 Fire Safety Assessment: A--An alcohol-based skin anteseptic being used preoperatively., C--Open oxygen or nitrous oxide is being used., D--An ESU, laser, or fiber-optic light is being used. 14:54:44 Physical assessment completed. ASA score P 2 - A patient with mild systemic disease as per Mark Montez MD. 14:54:48 Sedation plan: IV Moderate Sedation Medication:Versed, Fentanyl 14:54:55 Use device set Femoral Dx 14:55:07 ACIST Syringe (62077) opened to sterile field. 14:55:08 Bag Decanter (2002S) opened to sterile field. 14:55:08 Medline Cath Pack ([id number]) opened to sterile field. 14:55:10 ACIST Hand Control (78987) opened to sterile field. 14:55:10 ACIST Manifold (16678) opened to sterile field. 14:55:11 DIAGNOSTIC Multipack 5Fr catheter set (UZ5110) opened to sterile field. 14:55:12 Tegaderm 4 x 4 (1626W) opened to sterile field. 14:55:14 SHEATH 5FR Norvell (EOD409) opened to sterile field. 14:55:15 EMERALD Guide Wire (138-023) opened to sterile field. 14:56:27 Procedure started. 14:56:37 Versed 1 mg I.V. was administered by Dedrick Caballero RN; for sedation; Verbal order read back and verified. 14:56:42 Fentanyl 50 mcg I.V. was administered by Dedrick Caballero RN; for sedation; Verbal order read back and verified. 14:59:05 Local anesthetic to right femoral artery with Lidocaine 2% by Mark Montez MD.INITIAL ACCESS ONLY 14:59:16 A 5 Fr sheath was inserted into the Right Femoral artery 15:00:09 A MULTIPACK JL 4.0 5Fr catheter was advanced over the wire and used for Procedure. 15:03:23 LCA angiography performed. 15:03:25 Catheter removed. 15:03:43 A DIAGNOSTIC AR MOD 5Fr Catheter (445492K) was advanced over the wire and used for Procedure. 15:04:26 RCA angiography performed. 15:05:06 SVG to RCA angiography performed. 15:05:09 SVG to RCA occluded. 15:07:25 A DIAGNOSTIC Pigtail 5Fr catheter (711702W) was advanced over the wire and used for Ventriculography. 15:07:59 Aortic Root visualized 15:09:10 Catheter removed. 15:10:43 A DIAGNOSTIC IMT 5Fr Catheter ([id number]) was advanced over the wire and used for Procedure. 15:10:48 MORENO to LAD angiography performed. 15:12:44 Catheter removed. 15:15:46 A DIAGNOSTIC AR2 MOD 5 Fr catheter (901227K) was advanced over the wire and used for Procedure. 15:16:40 no graphs found 15:17:34 Catheter removed. 15:17:46 A MULTIPACK Pigtail 5 Fr catheter was advanced over the wire and used for Ventriculography. 15:19:08 EF : 35 % 15:19:41 LV hemodynamics recorded. 15:21:26 Catheter removed. 15:21:51 A MULTIPACK 3DRC 5Fr catheter was advanced over the wire and used for Procedure. 15:23:54 SVG to RCA angiography performed. 15:26:37 EXOSEAL 5Fr (EX500) opened to sterile field. 15:26:41 Catheter removed. 15:28:31 Sheath removed intact; hemostasis achieved with Exoseal to the Right Femoral artery. 15:28:36 Procedure ended.(Physican Out) 15:29:01 Fluoroscopy time 09.50 minutes. 15:29:14 Flurop Dose total: 1074 15:29:14 Fluoroscopy dose: 1074 mGy 15:29:20 Dose Area Product 98518 mGy/cm. 15:29:32 Contrast amount:Isovue 370 136ml. 15:29:34 Maximum allowable dose exceeded? No. 15:29:36 Sharps counted by scrub and verified by R.N. 15:29:38 Insertion/operative site no bleeding no hematoma. 15:29:42 Post-op/insertion site Right Femoral artery dressed using a 4 x 4 and Tegaderm. 15:29:45 Post Procedure Pulses reassessed and unchanged 15:30:01 Post-procedure physical assessment completed. ASA score P 4 - A patient with severe systemic disease that is a constant threat to life as per Mark Montez MD. 15:30:07 Post procedure rhythm: sinus rhythm 15:30:10 Estimated blood loss: 10 ml 15:30:12 Post procedure instruction explained to patient.Patient verbalizes understanding. 15:30:13 Patient needs reinforcement of post procedure teaching. 15:30:41 Procedure type changed to Cath procedure, Diagnostic procedure, LHC, LHC w/Coronaries w/Grafts, Sedation Charges, Moderate Sedation up to 30 minutes 15:30:43 Procedure and supply charges have been captured, reviewed, submitted and are correct. 15:31:05 Vital chart was stopped 15:31:14 [facility] Findings: MVD- MD will discuss options w/ pt 15:31:17 See physician's report for complete and final results. 15:31:20 Report given to ICU. 15:31:23 Patient transfered to ICU with Bed. 15:31:25 Procedure ended. 15:31:25 Full Disclosure recording stopped 15:31:32 End room use (Document Last) Device Usage Item Name Manufacture Quantity Catalog Number Hospital Part Current Minim al Lot# / Charge Number Stock Stock Serial# Code ACIST Acist 1 49048 907890 170243 852501 20 Syringe Medical (94093) Systems Inc Bag Microtek 1 2001S 953567 09123 067992 5 Decanter Medical Inc. (2001S) Medline Medline 1 [id number] 249924 46758 125580 5 Cath Pack ([id number]) ACIST Hand Acist 1 37857 348586 328607 050669 5 Control Medical (29468) Systems Inc ACIST Acist 1 32036 990553 271087 429380 5 Manifold Medical (78401) Systems Inc DIAGNOSTIC Cardinal 1 QC2144 018998 90517 221014 30 Multipack CitizenDish 5Fr catheter set (ZQ5760) Tegaderm 4 3M 1 1626W 479145 425391 590917 5 x 4 (1626W) SHEATH 5FR Terumo 1 WGA205 862822 717269 253399 5 Norvell (ETI266) EMERALD Cardinal 1 502-455 403304 022033 009887 5 Guide Wire Health (502-455) MULTIPACK Cardinal 1 048766 5 JL 4.0 5Fr Health catheter DIAGNOSTIC Cardinal 1 [id number] 972486 431621 759845 15 AR MOD 5Fr Health Catheter (934852P) DIAGNOSTIC Cardinal 1 [id number] 305494 981524 974638 5 Pigtail 5Fr Health catheter (122995R) DIAGNOSTIC [place] 1 [id number] 514195 626939 02783 5 IMT 5Fr Scientific Catheter ([id number]) DIAGNOSTIC Cardinal 1 162416P 758734 114876 445889 20 AR2 MOD 5 Health Fr catheter (112590W) MULTIPACK Cardinal 1 909775 5 Pigtail 5 Health Fr catheter MULTIPACK Cardinal 1 608006 5 3DRC 5Fr Health catheter EXOSEAL 5Fr Cardinal 1 EX500 680635 751752 473646 10 (EX500) Health Signature Audit [place] Stage Time Signature Unsigned Intra-Procedure 06/23/2019 Tania Gomez 3:32:39 PM RT(R) Intra-Procedure 06/23/2019 Dedrick Caballero RN 3:33:07 PM Intra-Procedure 06/23/2019 Mark Montez MD 3:34:45 PM Signatures Performing Physician : Signature : Mark Montez MD Date : Time : Monitor : Tania Gomez Signature : RT Date : Time : Nurse : Dedrick Caballero RN Signature : Date : Time : [facility] [address] [place] [address]
--- NOTE | ~2019-06-22 | HEMODYNAMI ---
PATIENT:FLORENCE FARIAS MEDICAL RECORD: [id number] : 37 LOC[id number] ADMISSION DATE: 06/22/19 Generatedon:06/25/201912:42 Patient name: FLORENCE FARIAS Patient #: [id number] : 1935 Date of study: 06/25/2019 Page: Of Hemodynamic Procedure Report Patient Data Patient Demographics Procedure consent was obtained First Name: FLORENCE Gender: Male Last Name: DINORA : 1935 Patient #: [id number] Age: 83 year(s) Race: SSN: [id number] Additional ID: [id number] Contact details [address]: [address] [place] [address] State: [place] City: [place] Zip code: [address] Past Medical History History of disease Date Diagnosis Comments CAD Allergies Allergen Reaction Date Comments Reported Other allergy 03/20/2018 cephalexin Other allergy 06/23/2019 cephlexin Other allergy 06/24/2019 CEPHALEXIN Other allergy 06/25/2019 CEPHALEXIN Admission Admission Data Admission Date: 06/22/2019 Admission Time: 21:47 Arrival Date: 06/22/2019 Arrival Time: 21:47 Admit Source: Emergency Insurance Payor: [facility] Care Room #: D.2310 [facility] #: [id number] Height (in.): 68.11 BSA: 1.92 (m2) Height (cm.): 173 BMI: 26.06 (kg/m2) Weight (lbs.): 171.96 Weight (kg.): 78 Lab Results Lab Result Date: 06/24/2019 Lab Result Time: 0:00 Biochemistry Name Units Result Min Max BUN mg/dl 24 --(----)-* 7 18 CK-MB ng/ml 2.4 --(--*-)-- 0 3.6 Creatinine mg/dl 1.2 --(---*)-- 0.6 1.3 eGFR ml/min 61.19242 *-(----)-- 90 120 NONAFRICAN Troponin l ng/ml 1.41 --(----)-* 0 0.06 CBC Name Units Result Min Max Hematocrit % 40.7 -*(----)-- 42 54 Hemoglobin g/dl 12.8 -*(----)-- 13.5 17.5 Procedure Procedure Types Cath Procedure Diagnostic Procedure Sedation Charges Moderate Sedation up to 15 minutes PCI Procedure Coronary Stent Coronary Stent Initial x2 Hemochron ACT Test Procedure Description Procedure Date Procedure Date: 06/25/2019 Procedure Start Time: 12:19 Procedure End Time: 12:40 Procedure Staff Name Function Denise Ambrosio RT Scrub Chio Kennedy RT Monitor Dedrick Caballero RN Nurse Gatito Haji MD Performing Physician Procedure Data Cath Procedure Fluoroscopy Diagnostic fluoroscopy Total fluoroscopy Time: 4.3 time: 4.3 min min Diagnostic fluoroscopy Total fluoroscopy dose: 619 dose: 619 mGy mGy Contrast Material Contrast Material Type Amount (ml) Isovue 300 99 Entry Location Entry Primary Successful Side Size Upsize Upsize Entry Closure Succes sful Closure Location (Fr) 1 (Fr) 2 (Fr) Remarks Device Remarks Femoral Right 6 Fr Exoseal artery Short Estimated blood loss: 10 ml Procedure Complications No complications Procedure Medications Medication Administration Route Dosage Oxygen etCO2 Nasal cannula 2 l/min Lidocaine 2% added to field 20 Heparin Flush Bag added to field 2 bags (1000units/500ml NS) 0.9% NaCl I.V. 100 ml/hr Versed I.V. 1 mg Fentanyl I.V. 50 mcg Amiodarone Loading I.V. drip 150 mg Dose (150mg/100ml D5W) Heparin Bolus I.V. 4000 units Amiodarone Loading I.V. drip 150 mg Dose (150mg/100ml D5W) Hemodynamics Rest BSA: 1.92 (m2) HGB: 12.8 (g/dl) O2 Consumption: Estimated: 212.14 (ml/min) O2 Co nsumption indexed: Estimated:110.49 (ml/min/m) Heart Rate: 61 (bpm) Snapshots Pre Cath Intra NCS Post Cath Vital Signs Time Heart Resp SPO2 etCO2 NIBP (mmHg) Rhythm Pain Sedation Rate (ipm) (%) (mmHg) Status Level (bpm) 12:08:30 63 22 99 0 132/78(114) A-Flutter 0 (11) 10(A) , No pain 12:12:48 27 24 96 0 144/79(134) A-Flutter 0 (11) 10(A) , No pain 12:17:09 61 22 97 0 122/71(94) A-Flutter 0 (11) 10(A) , No pain 12:21:25 60 19 98 0 122/70(108) A-Flutter 0 (11) 10(A) , No pain 12:25:41 59 19 96 0 102/63(85) A-Flutter 0 (11) 9(A) , No pain 12:29:48 58 18 96 0 105/68(91) NSR 0 (11) 9(A) , No pain 12:33:58 59 18 94 0 117/68(106) NSR 0 (11) 10(A) , No pain Medications Time Medication Route Dose Verified Delivered Reason Notes Effectiveness by by 12:12:19 Oxygen etCO2 2 Gatito Tse used for Nasal l/min Adithya Caballero RN procedure cannula 12:12:26 Lidocaine 2% added 20ml Gatito Mederos for local to vial Adithya Haji MD anesthetic field 12:12:31 Heparin Flush added 2 Gatito Gatito used for Bag to bags Adithya Haji MD procedure (1000units/500ml field NS) 12:13:06 0.9% NaCl I.V. 100 Gatito Grimmie Per physician ml/hr Adithya Caballero RN 12:15:46 Amiodarone I.V. 150 Gatito Grimmie Per physician Loading Dose drip mg Adithya Caballero RN (150mg/100ml D5W) 12:20:22 Versed I.V. 1 mg Gatito Buffie for sedation Adithya Caballero RN 12:20:28 Fentanyl I.V. 50 Gatito Buffie for sedation mcg Adithya Caballero RN 12:21:45 Heparin Bolus I.V. 4000 Gatito Buffie for units Adithya Caballero RN anticoagulation 12:29:29 Amiodarone I.V. 150 Gatitoangely Grimmie Per physician Loading Dose drip mg Adithya Caballero RN (150mg/100ml D5W) Procedure Log Time Note 11:48:38 Patient Height : 68.11 inches 11:48:38 Patient Weight : 171.96 lbs 11:48:39 Informed consent obtained and on chart 11:49:04 Procedure Status PCI. 11:49:05 Time tracking: Regular hours (M-F 7:00 - 5:00) 11:49:09 Plan of Care:Hemodynamics will remain stable., Cardiac rhythm will remain stable., Comfort level will be maintained., Respiratory function will remain adequate., Patient/ family verbilizes understanding of procedure., Procedure tolerated without complication., Recovers from procedure without complications.. 11:49:11 Dedrick Caballero RN sent for patient. Start room use. 11:49:17 H&P Date Dictated: 06/25/2019 Within 30 days and on chart.. 11:49:41 Patient allergic to Other allergyCEPHALEXIN 11:59:56 Patient received from ICU to CCL 1 Alert and oriented. Tansferred to table in Supine position. 11:59:58 Warm blankets applied, and clara hugger turned on for patient comfort. 11:59:58 Correct patient and procedure confirmed by team. 12:07:22 ECG and BP/O2 sat monitors applied to patient. 12:07:23 Baseline sample Acquired. 12:07:23 Vital chart was started 12:07:28 Rhythm: paced, atrial flutter 12:07:41 Full Disclosure recording started 12:07:42 Pre-procedure instructions explained to patient. 12:07:42 Pre-op teaching completed and patient verbalized understanding. 12:07:52 Family in waiting room. 12:08:12 Patient NPO since Midnight. 12:08:42 Was the patient premedicated? No 12:08:44 Is patient on blood thinner?Yes 12:08:46 ACC The patient was administered the following blood thiners within the last 24 hours: ACCPlavix 12:09:27 Patient diabetic? No. 12:09:29 Previous problem with sedation/anesthesia? No ? 12:09:35 Snore? Yes 12:09:36 Sleep apnea? No 12:09:37 Deviated septum? No 12:09:38 Opens mouth fully? Yes 12:09:39 Sticks out tongue? Yes 12:09:41 Airway obstruction? N/A ? 12:09:43 Dentures? No ? 12:09:45 Pre procedure: right dorsailis pedis pulse 1+ Palpable, but thready & weak; easily obliterated 12:09:54 IV patent on arrival in Lt subclavian with 0.9% NaCl at [facility]. 12:09:57 Lab results completed and on chart. 12:10:21 Risk of Mortality: 1.7 12:10:32 Risk of blood transfusion: 4.6 12:10:35 Risk of DWAIN: 7.8 12:10:42 Right groin area was prepped with chlora-prep and draped in sterile fashion 12:10:43 Alarms reviewed by R. N. 12:10:43 Sharps counted by scrub and verified by R.N. 12:10:48 Use device set CATH PACK 12:10:50 ACIST Syringe (10272) opened to sterile field. 12:10:50 ACIST Hand Control (68644) opened to sterile field. 12:10:50 ACIST Manifold (86085) opened to sterile field. 12:10:51 Medline Cath Pack ([id number]) opened to sterile field. 12:10:51 Bag Decanter (2002S) opened to sterile field. 12:10:53 EMERALD Guide Wire (006-913) opened to sterile field. 12:11:15 SHEATH 6FR [place] ([id number]) opened to sterile field. 12:11:15 INFLATOR Merit BasixCompak (IU6626) opened to sterile field. 12:11:16 CHOICE PT Extra Support 182cm wire ([id number]) opened to sterile field. 12:12:19 Oxygen 2 l/min etCO2 Nasal cannula was administered by Dedrick Caballero RN; used for procedure; Verbal order read back and verified. 12:12:26 Lidocaine 2% 20ml vial added to field was administered by Gatito Haji MD; for local anesthetic; Verbal order read back and verified. 12:12:31 Heparin Flush Bag (1000units/500ml NS) 2 bags added to field was administered by Gatito Haji MD; used for procedure; Verbal order read back and verified. 12:13:06 0.9% NaCl 100 ml/hr I.V. was administered by Dedrick Caballero RN; Per physician; Verbal order read back and verified. 12:15:46 Amiodarone Loading Dose (150mg/100ml D5W) 150 mg I.V. drip was administered by Dedrick Caballero RN; Per physician; Verbal order read back and verified. 12::29 --------ALL STOP TIME OUT------ ::29 Final Timeout: patient, procedure, and site verified with staff and physician. All members of the team are in agreement. 12:16:30 Right groin site verified by team. 12:16:33 Fire Safety Assessment: A--An alcohol-based skin anteseptic being used preoperatively., C--Open oxygen or nitrous oxide is being used., D--An ESU, laser, or fiber-optic light is being used. 12:16:42 Physical assessment completed. ASA score P 3 - A patient with severe systemic disease as per Gatito Haji MD. 12:17:06 2) 60-89 Mildly reduced kidney function, and other findings (as for stage 1) point to kidney disease. 12:17:09 Maximum allowable contrast dose (3.7 X eGFR X 0.75)169 ml. 12:17:12 Sedation plan: IV Moderate Sedation Medication:Versed, Fentanyl 12:19:30 Procedure started. 12:19:31 Zero performed for pressure channel P1 12:19:48 Local anesthetic to right femoral artery with Lidocaine 2% by Gatito Haji MD.INITIAL ACCESS ONLY 12:20:00 FIELDER XT 190cm guidewire ([id number]) opened to sterile field. 12:20:13 A 6 Fr Short sheath was inserted into the Right Femoral artery 12:20:22 Versed 1 mg I.V. was administered by Dedrick Caballero RN; for sedation; Verbal order read back and verified. 12:20:28 Fentanyl 50 mcg I.V. was administered by Dedrick Caballero RN; for sedation; Verbal order read back and verified. 12:20:30 Pre PCI Site: [place] LMCA has 100% stenosis. 12:20:30 Pre PCI Site: [place] Circ has 90% stenosis. 12:20:44 GUIDE 6FR XBLAD 3.5 SH catheter ([id number]) opened to sterile field. 12:21:02 6 Fr XBLAD 3.5 SH guide catheter was inserted over the wire 12:21:37 Guide Catheter removed. unable to cannulate vessel. 12:21:42 GUIDE 6FR XBLAD 4.0 SH catheter ([id number]) opened to sterile field. 12:21:45 Heparin Bolus 4000 units I.V. was administered by Dedrick Caballero RN; for anticoagulation; Verbal order read back and verified. 12:23:02 6 Fr XBLAD 4 SH guide catheter was inserted over the wire 12:23:52 FIELDER 190 wire advanced. 12:24:20 Wire advanced across lesion. 12:26:07 Inflate balloon Inflation number: 1 A EUPHORA 3.5 x 15 Balloon ([id number]) was prepped and advanced across the LMCA , then inflated to 13 JEANNETTE for 0:00 (min:sec) . 12:26:38 Inflation number: 2 The EUPHORA 3.5 x 15 Balloon ([id number]) was reinflated across the LMCA , to 15 JEANNETTE for 0:00 (min:sec) . 12:27:14 Balloon removed over the wire. 12:28:56 Place stent Inflation Number: 3 A NERY RX 3.5 x 15 stent ([id number]) was prepped and advanced across the LMCA . The stent was deployed at 15 JEANNETTE for 0:00 (min:sec) . 12:29:29 Amiodarone Loading Dose (150mg/100ml D5W) 150 mg I.V. drip was administered by Dedrick Caballero RN; Per physician; Verbal order read back and verified. 12:29:47 Stent catheter was removed intact over wire. 12:31:10 Place stent Inflation Number: 1 A NERY RX 2.5 x 12 stent ([id number]) was prepped and advanced across the Prox CX . The stent was deployed at 11 JEANNETTE for 0:00 (min:sec) . 12:31:39 Stent catheter was removed intact over wire. 12:31:40 Wire removed. 12:31:40 Guide catheter removed. 12:32:39 EXOSEAL 6Fr (EX600) opened to sterile field. 12:32:46 Sheath removed intact; hemostasis achieved with Exoseal to the Right Femoral artery. 12:32:48 Procedure ended.(Physican Out) 12:33:33 Fluoroscopy time 04.30 minutes. 12:33:37 Flurop Dose total: 619 12:33:37 Fluoroscopy dose: 619 mGy 12:33:43 Dose Area Product 57853 mGy/cm. 12:33:47 Contrast amount:Isovue 300 99ml. 12:33:55 Maximum allowable dose exceeded? No. 12:33:56 Sharps counted by scrub and verified by R.N. 12:34:00 Post-op/insertion site Right Femoral artery dressed using a 4 x 4 and Tegaderm. 12:34:04 Post-procedure physical assessment completed. ASA score P 3 - A patient with severe systemic disease as per Gatito Haji MD. 12:34:12 Post procedure rhythm: sinus bradycardia, paced 12:34:20 Estimated blood loss: 10 ml 12:34:21 Post procedure instruction explained to patient.Patient verbalizes understanding. 12:34:22 Patient needs reinforcement of post procedure teaching. 12:34:30 Procedure type changed to Cath procedure, Diagnostic procedure, Sedation Charges, Moderate Sedation up to 15 minutes, PCI procedure, Coronary Stent, Coronary Stent Initial x2, Hemochron ACT Test 12:36:16 Procedure and supply charges have been captured, reviewed, submitted and are correct. 12:36:18 Procedure Complication : No complications 12:36:20 Vital chart was stopped 12:36:22 [facility] Findings: MVD- PCI performed (see procedure note) 12:36:24 Operative report dictated upon procedure completion. 12:36:24 See physician's report for complete and final results. 12:36:55 ACT drawn and resulted at 281 seconds. (normal therapeutic range 180-240 seconds). 12:40:25 Report given to ICU. 12:40:28 Patient transfered to ICU with Bed. 12:40:29 Procedure ended. 12:40:29 Full Disclosure recording stopped 12:40:36 ACC-PCI Only Patient was given prescriptions, or instructed by Gatito Haji MD to start/continue the following medications upon discharge: Plavix 12:40:38 End room use (Document Last) 12:41:29 End room use (Document Last) 12:41:51 End room use (Document Last) Intervention Summary Intervention Notes Time ActionType Lesion and Equipment Used Action# Pressure Duration Attributes 12:26:07 Inflate LMCA EUPHORA 3.5 x 1 13 00:00 balloon 15 Balloon ([id number]) 12:26:38 Reinflate LMCA EUPHORA 3.5 x 2 15 00:00 balloon 15 Balloon ([id number]) 12:28:56 Place stent LMCA NERY RX 3.5 x 3 15 00:00 15 stent ([id number]) 12:31:10 Place stent Prox CX NERY RX 2.5 x 1 11 00:00 12 stent ([id number]) Device Usage Item Name Manufacture Quantity Catalog Number Hospital Part Current M inimal Lot# / Charge Number Stock Stock Serial# Code ACIST Syringe Acist 1 75038 397194 098988 023309 2 0 (53125) Medical Systems Inc ACIST Hand Acist 1 86821 016404 928106 862835 5 Control Medical (76058) Systems Inc ACIST Manifold Acist 1 83635 458234 005068 944985 5 (35169) Medical Systems Inc Medline Cath Medline 1 [id number] 057051 57019 323866 5 Pack ([id number]) Bag Decanter Microtek 1 2001S 271366 62441 729665 5 (2001S) Medical Inc. EMERALD Guide Cardinal 1 502-455 304698 592302 353270 5 Wire (502-455) Health SHEATH 6FR Terumo 1 YYH715 223698 909228 341097 4 0 [place] (HMT818) INFLATOR Merit Merit 1 OH7006 503906 635332 763519 1 5 Callision (IB5483) CHOICE PT [place] 1 [id number] 783237 057145 629384 5 Extra Support Scientific 182cm wire ([id number]) FIELDER XT Asava Intecc 1 [id number] 463446 58848 439397 5 190cm guidewire ([id number]) GUIDE 6FR Cardinal 1 [id number] 118356 978488 582605 3 XBLAD 3.5 Health catheter ([id number]) GUIDE 6FR Cardinal 1 [id number] 204985 2594 006748 3 XBLAD 4.0 [employer] catheter ([id number]) EUPHORA 3.5 x Medtronic 1 [id number] 125676 624983 339713 5 15 Balloon ([id number]) NERY RX 3.5 x Medtronic 1 [id number] 620189 1147302 574998 5 15 stent ([id number]) NERY RX 2.5 x Medtronic 1 [id number] 963049 9273027 372938 5 12 stent ([id number]) EXOSEAL 6Fr Cardinal 1 EX600 465055 136825 699294 1 0 (EX600) Health Signature Audit Gate Stage Time Signature Unsigned Intra-Procedure 06/25/2019 Chio Kennedy 12:41:29 PM RT(R) Intra-Procedure 06/25/2019 Dedrick Caballero RN 12:41:51 PM Intra-Procedure 06/25/2019 Gatito Haji 12:42:09 PM [id number] [place] [address]
[~2019-06-22 21:11] MED LIST: ACTIGALL 300 M300 MG PO; ASPIRIN81 MG PO; COZAAR25 MG PO; ELIQUIS2.5 MG PO; FERROUS SULFAT325 MG PO; FEXMID7.5 MG PO; GABAPENTIN100 MG PO; ISOSORBIDE DINI20 MG PO; LIPITOR80 MG PO; NITROSTAT0.4 MG SL; PLAVIX75 MG PO; TOPROL XL100 MG PO
[2019-06-22] MEDS ORDERED: VITAMIN B-121000 MCG PO (21:44)
[2019-06-22 21:45] VITALS: BP 122/68
[2019-06-22] MEDS ORDERED: FLUTICASONE PRO16 GM (21:46)
[2019-06-22] MEDS ORDERED: VOLTAREN100 GM (21:46)
[2019-06-22] MEDS ORDERED: GABAPENTIN300 MG PO (21:48)
[2019-06-22] MEDS ORDERED: LASIX20 MG PO (21:48)
[2019-06-22] MEDS ORDERED: LIDOCAINE (21:50)
[2019-06-22] MEDS ORDERED: MELATONIN 3 MG1 TAB PO (21:51)
[2019-06-22] MEDS ORDERED: NALTREXONE HCL50 MG PO (21:52)
[2019-06-22] MEDS ORDERED: GAVILAX510 GM PO (21:52)
[2019-06-22] MEDS ORDERED: ACTIGALL 300 M300 MG PO (21:53)
[2019-06-22] MEDS ORDERED: ELIQUIS5 MG PO (21:53)
[2019-06-22 21:59] LABS: BASOPHILS 0.4 % (0-2); EOSINOPHILS 2.3 % (0-7); HEMATOCRIT 38.3 % (42.0-54.0); HEMOGLOBIN 12.4 g/dL (13.5-17.5); IMMATURE GRANULOCYTES 0.4 % (0-5); MCH 27.7 pg (26.0-34.0); MCHC 32.4 g/dL (31.0-37.0); MCV 85.7 fL (80.0-100.0); MEAN PLATELET VOLUME 9.7 fL (7.4-10.4); MONOCYTES 5.7 % (2-11); NEUTROPHILS 68.2 % (40-80); RBC 4.47 10x6/uL (4.20-6.10); RDW 14.2 % (11.5-14.5); WBC 5.6 10x3/uL (4.8-10.8)
[2019-06-22 22:03] LABS: PLATELET COUNT 206 10x3/uL (130-400)
[2019-06-22 22:10] LABS: ANION GAP 14.2 mmol/L (8-16); APTT 36.1 SECONDS (22.8-39.4); CALCIUM 8.5 mg/dL (8.5-10.1); CARBON DIOXIDE 26.1 mmol/L (21.0-32.0); CREATININE - SERUM 1.2 mg/dL (0.6-1.3); INR 1.16 (0.85-1.17); POTASSIUM - SERUM 4.3 mmol/L (3.5-5.1); PROTIME 14.8 SECONDS (11.6-15.0)
[2019-06-22 22:30] LABS: ALBUMIN 3.1 g/dL (3.4-5.0); BILIRUBIN - TOTAL 0.34 mg/dL (0.2-1.3); MAGNESIUM - SERUM 1.9 mg/dL (1.8-2.4); PROTEIN - SERUM 6.7 g/dL (6.4-8.2)
[2019-06-22 22:31] LABS: TROPONIN-I 0.723 ng/mL (0.000-0.060)
--- NOTE | 2019-06-22 22:43 | NUR ---
LUIS SHAFER MADE AWARE OF ELEVATED TROP. NO NEW ORDERS.
[2019-06-22 22:45] VITALS: BP 130/73
--- NOTE | 2019-06-22 23:10 | NUR ---
REPORT RECEIVED FROM [employer] OFFICER, INFORMEDN THAT DR. ARZATE IS AWARE OF CONSULT PER DR. ROWE.
--- NOTE | 2019-06-22 23:53 | NUR ---
PATIENT ARRIVED TO UNIT VIA STRETCHER, DENIES CHEST PAIN OR ANY OTHER PAIN. ALL MONITORING INITIATED. ADMISSION ASSESSMENT COMPLETED PER FLOW SHEET, SEE FOR DETAILS. NO FAMILY PRESENT. DENIES NEEDS. LT FOREARM PIV PATENT, NO SIGNS OF INFECTION OR INFILTRATION. CALL LIGHT WITHIN REACH. WILL CONTINUE TO MONITOR.
[2019-06-23] VITALS (72 sets, daily range): BP systolic 92–165; BP diastolic 62–92; Ht 172.7 cm; Wt 76.4 kg
--- NOTE | 2019-06-23 01:00 | NUR ---
RESTING, DENIES PAIN, WILL CONTINUE TO MONITOR. 0307 REASSESSMENT COMPLETED PER FLOW SHEET, SEE FOR DETAILS. NO ACUTE CHANGES NOTED, DENIES CHEST PAIN. WILL CONTINUE TO MONITOR. 0500 COMPLETE BED BATH GIVEN, PATIENT C/O CHEST PAIN, NITRO DRIP INCREASED TO 6 MCG/MIN, PATIENT STATES PAIN RELIEVED. WILL CONTINUE TO MONITOR. CALL LIGHT WITHIN REACH.
[2019-06-23 04:02] LABS: BASOPHILS 0.4 % (0-2); EOSINOPHILS 3.2 % (0-7); HEMOGLOBIN 12.5 g/dL (13.5-17.5); IMMATURE GRANULOCYTES 0.4 % (0-5); MCH 27.9 pg (26.0-34.0); MCHC 32.1 g/dL (31.0-37.0); MCV 87.1 fL (80.0-100.0); MEAN PLATELET VOLUME 10.3 fL (7.4-10.4); MONOCYTES 9.4 % (2-11); NEUTROPHILS 60.6 % (40-80); PLATELET COUNT 188 10x3/uL (130-400); RBC 4.48 10x6/uL (4.20-6.10); RDW 14.2 % (11.5-14.5); WBC 5.6 10x3/uL (4.8-10.8)
[2019-06-23 04:10] LABS: ALBUMIN 2.9 g/dL (3.4-5.0); ALKALINE PHOSPHATASE 66 U/L (30-120); ALT (SGPT) 21 U/L (10-68); BILIRUBIN - TOTAL 0.28 mg/dL (0.2-1.3); CALC OSMOLALITY 286 mosm/kg (275-300); CALCIUM 8.2 mg/dL (8.5-10.1); CARBON DIOXIDE 24.2 mmol/L (21.0-32.0); CHLORIDE - SERUM 109 mmol/L (98-107); CKMB 3.1 U/L (0.0-3.6); CREATINE KINASE 91 UL (21-232); GLUCOSE 87 mg/dL (74-106); MAGNESIUM - SERUM 1.9 mg/dL (1.8-2.4); POTASSIUM - SERUM 4.6 mmol/L (3.5-5.1); PROTEIN - SERUM 5.9 g/dL (6.4-8.2); SODIUM 142 mmol/L (136-145); UREA NITROGEN 26 mg/dL (7-18); eGFR NON AFRICAN AMERICAN 76 mL/min (90-120)
[2019-06-23 04:13] LABS: TROPONIN-I 1.628 ng/mL (0.000-0.060)
--- NOTE | 2019-06-23 08:47 | NUR ---
UP IN BED AWAKE AT THIS TIME. VSS. NO ACUTE DISTRESS NOTED. PT DENIES ANY CHEST PAIN. WILL KEEP PT NPO UNTIL SEEN BY PHYSICIAN. WILL CONTINUE PLAN OF CARE.
--- NOTE | 2019-06-23 09:15 | NUR ---
SPOKE WITH CATE CARDIOLOGY DIMENSION WAREHOUSE SUPERVISOR, STATING PT TO GO TO NEWSPAPER EDITOR MANAGING TODAY. WILL OBTAIN CONSULTS AND HOLD AM LOVENOX. VSS. WILL CONTINUE PLAN OF CARE.
[2019-06-23 09:37] LABS: BASOPHILS 0.3 % (0-2); EOSINOPHILS 3.2 % (0-7); HEMATOCRIT 39.6 % (42.0-54.0); HEMOGLOBIN 12.7 g/dL (13.5-17.5); IMMATURE GRANULOCYTES 0.2 % (0-5); LYMPHOCYTES 25.3 % (15-50); MCH 27.9 pg (26.0-34.0); MCHC 32.1 g/dL (31.0-37.0); MEAN PLATELET VOLUME 9.8 fL (7.4-10.4); MONOCYTES 6.6 % (2-11); NEUTROPHILS 64.4 % (40-80); PLATELET COUNT 181 10x3/uL (130-400); RBC 4.55 10x6/uL (4.20-6.10); RDW 14.2 % (11.5-14.5); WBC 5.9 10x3/uL (4.8-10.8)
[2019-06-23 09:39] LABS: CKMB 3.1 U/L (0.0-3.6); CREATINE KINASE 70 UL (21-232)
[2019-06-23 09:44] LABS: ANION GAP 9.6 mmol/L (8-16); CALCIUM 8.1 mg/dL (8.5-10.1); CARBON DIOXIDE 26.9 mmol/L (21.0-32.0); CHOL - HDL RATIO 3.8 ratio (2.3-4.9); CREATININE - SERUM 1.1 mg/dL (0.6-1.3); LDL-HDL RATIO 2.4 ratio (1.5-3.5); POTASSIUM - SERUM 4.5 mmol/L (3.5-5.1)
--- NOTE | 2019-06-23 09:51 | NUR ---
FAMILY AT BEDSIDE AT THIS TIME, CARDIOLOGY EXPERIMENTAL WORKER HAS SPOKEN WITH FAMILY. ALL QUESTIONS AND CONCERNS ADDRESSED. VSS. NO ACUTE DISTRESS NOTED. PT DENIES CHEST PAIN. WILL CONTINUE PLAN OF CARE.
--- NOTE | 2019-06-23 10:18 | NUR ---
WILL ADMIN SCHEDULED MEDS WHEN RECIEVE FROM PHARMACY. WILL HOLD LOVENOX SINCE PT TO GO TO ACCOUNT DEVELOPER TODAY.
--- NOTE | 2019-06-23 10:25 | NUR ---
PT RETURNED TO UNIT AT THIS TIME VIA BED ACCOMPANIED BY CANTILEVER CRANE OPERATOR STAFF. VSS. PTS AT BEDSIDE. UPDATES PROVIDED. TR BAND TO RT RADIAL, SITE CDI WITH NO DRAINAGE OR DISCOLORATION. WILL CONTINUE TO OBSERVE.
--- NOTE | 2019-06-23 14:34 | NUR ---
PT PREOPED, LEFT FOR FAIRING MAN AT THIS TIME VIA BED ACCOMPANIED BY FAIRING MAN STAFF. PTS FAMILY NOTIFIED OF THIS VSS.
[2019-06-23 15:09] LABS: CKMB 2.4 U/L (0.0-3.6); CREATINE KINASE 66 UL (21-232)
--- NOTE | 2019-06-23 15:35 | NUR ---
RECIEVED REPORT ON PT FROM SNAP ATTACHER. WAITING TO RECIEVE PT BACK TO UNIT.
--- NOTE | 2019-06-23 15:45 | NUR ---
PT RETURNED FROM AERIAL SPRAYER AT THIS TIME. PT SLEEPY BUT AWAKES WHEN SPOKEN TO. VSS. NO ACUTE DISTRESS NOTED. PTS AT BEDSIDE. NOTIFIED PTS THAT DR ARZATE SHOULD BE BY SHORTLY TO GIVE HER UPDATES. RT GROIN SITE IS NOTED CDI WITH NO DRAINAGE OR SWELLING. WILL CONTINUE TO CLOSELY OBSERVE.
--- NOTE | 2019-06-23 16:24 | NUR ---
CALLED LINOLEUM LAYER TO SEE WHEN DR ARZATE WOULD BE HERE TO SPEAK WITH PTS FAMILY TO PROVIDE UPDATES, LINOLEUM LAYER STATED THAT DR ARZATE WOULD BE BY SHORTLY TO SPEAK WITH PTS FAMILY.
--- NOTE | 2019-06-23 16:38 | NUR ---
DR ARZATE HERE SPEAKING WITH PTS FAMILY, QUESTIONS AND CONCERNS ADDRESSED. ORDERS RECIEVED.
--- NOTE | 2019-06-23 16:49 | NUR ---
PER DR ARZATE AND CATE KONG FOR DR ARZATE, EDWARDO LOVENOX. IF PT STARTS HAVING CHEST PAIN THEN HOLD ISOSORBIDE AND PLACE NITRO PATCH 0.1. ALSO OKAY FOR PT TO RECIEVE ASPIRIN TOMORROW AM. FAMILY AT BEDSIDE. WILL CONTINUE PLAN OF CARE.
--- NOTE | 2019-06-23 18:38 | NUR ---
UP IN BED EATING SUPPER AT THIS TIME. VSS. NO ACUTE DISTRESS NOTED. PULSES PALP, RT GROIN SITE CDI WITH NO S/S DRAINAGE OR HEMATOMA. WILL CONTINUE PLAN OF CARE.
--- NOTE | 2019-06-23 19:13 | NUR ---
REPORT RECEIVED, SHIFT ASSESSMENT COMPLETED PER FLOW SHEET, SEE FOR DETAILS. DENIES PAIN OR NEEDS. CALL LIGHT WITHIN REACH. WILL CONTINUE TO MONITOR.
--- NOTE | 2019-06-23 21:11 | NUR ---
SCHEDULED MEDS GIVEN, SEE EMAR FOR DETAILS. 2320 REASSESSMENT COMPLETED PER FLOW SHEET, SEE FOR DETAILS. DENIES PAIN. CALL LIGHT WITHIN REACH. 0100 DENIES PAIN OR NEEDS. CALL LIGHT WITHIN REACH. 0300 REASSESSMENT COMPLETED PER FLOW SHEET, SEE FOR DETAILS. DENIES PAIN OR NEEDS. WILL CONTINUE TO MONITOR.
[2019-06-24] VITALS (26 sets, daily range): BP systolic 120–159; BP diastolic 73–99
[2019-06-24 05:00] LABS: BASOPHILS 0.3 % (0-2); EOSINOPHILS 2.9 % (0-7); HEMATOCRIT 40.7 % (42.0-54.0); HEMOGLOBIN 12.8 g/dL (13.5-17.5); IMMATURE GRANULOCYTES 0.3 % (0-5); LYMPHOCYTES 16.3 % (15-50); MCH 27.5 pg (26.0-34.0); MCHC 31.4 g/dL (31.0-37.0); MCV 87.5 fL (80.0-100.0); MEAN PLATELET VOLUME 9.9 fL (7.4-10.4); MONOCYTES 6.2 % (2-11); PLATELET COUNT 206 10x3/uL (130-400); RBC 4.65 10x6/uL (4.20-6.10); RDW 14.3 % (11.5-14.5)
--- NOTE | 2019-06-24 05:00 | NUR ---
RESTING IN BED, DENIES PAIN OR NEEDS. NO ACUTE DISTRESS NOTED. WILL CONTINUE TO MONITOR. CALL LIGHT WITHIN REACH.
[2019-06-24 05:11] LABS: WBC 7.6 10x3/uL (4.8-10.8)
[2019-06-24 05:39] LABS: ALBUMIN 3.1 g/dL (3.4-5.0); ANION GAP 12.2 mmol/L (8-16); BILIRUBIN - TOTAL 0.26 mg/dL (0.2-1.3); CALCIUM 8.4 mg/dL (8.5-10.1); CARBON DIOXIDE 26.6 mmol/L (21.0-32.0); CREATININE - SERUM 1.2 mg/dL (0.6-1.3); POTASSIUM - SERUM 4.8 mmol/L (3.5-5.1); PROTEIN - SERUM 6.7 g/dL (6.4-8.2)
--- NOTE | 2019-06-24 08:52 | NUR ---
family at bedside at this time. cleaner laboratory equipment nurses at bedside to take pt to cleaner laboratory equipment for procedure. updating the family on what dr leung and dr paulino plan
--- NOTE | 2019-06-24 08:59 | NUR ---
PT OFF UNIT TO BASKET GRADER
--- NOTE | 2019-06-24 10:31 | NUR ---
PT RETURNED FROM CHIEF HUMAN RESOURCES OFFICER AND PLACED BACK ON BEDSIDE MONITORING. PT SLEEPY, BUT AROUSES TO VOICE. LEFT GROIN ENTRY SITE DRESSING IS C,D,I. NO EVIDENCE OF HEMATOMA. BILATERAL LOWER PULSES STRONG. FAMILY WAS UPDATED BY DR MENENDEZ
--- NOTE | 2019-06-24 10:57 | NUR ---
PT SLEEPING, REMAINS FLAT. LEFT GROIN SITE SOFT, DRESSING C,D,I. PULSES PALPABLE
--- NOTE | 2019-06-24 12:15 | NUR ---
PT REMAINS RESTING. NO DISTRESS NOTED. VSS. FAMILY AT BEDSIDE. LEFT GROIN SITE REMAINS SOFT, DRESSING C,D,I. PALPABLE PULSES
--- NOTE | 2019-06-24 13:24 | NUR ---
Nutrition follow-up: Pt has been NPO today for heart cath PO intake 100% of dinner last evening labs reviewed' Wt: 168# RDN following.
--- NOTE | 2019-06-24 15:23 | NUR ---
PT AWAKE NOW. SITE REMAINS SOFT, NO BLEEDING. PT SET UP SO MAY URINATE. ONCE PT MOVING AROUND STARTED COMPLAINING OF CHEST PAIN AND MOANING.
--- NOTE | 2019-06-24 15:51 | NUR ---
MORPHINE GIVEN. PT NOW RELAXED AND RESTING WITH EYES CLOSED. NO GRIMACING. LEFT GROIN SITE REMAINS THE SAME. CALL LIGHT IN REACH.
--- NOTE | 2019-06-24 16:22 | NUR ---
FAMILY COMES TO NURSE STATION TO GET NURSE. PT NEEDS TO URINATE. PT HAS URINAL AND ABLE TO USE HIMSELF. NURSE LET FAMILY KNOW HE IS NOT HELPLESS AND CAN DO IT HIMSELF. THEY SEEMED TAKEN ABACK AT THE IDEA OF HIM DOING IT HIMSELF. PT VSS. HE HAS FULL USE OF ARMS. NOTHING PROHIBITING HIM FROM TOILETING ON HIS OWN. NURSE WENT TO CHECK ON PT A COUPLE OF MINUTES LATER TO SEE IF WAS FINISHED AND FOUND SON/GRANDSON HELPING PATIENT WITH URINAL. NURSE TOOK URINAL ONCE EMPTIED AND DISPOSED OF URINE. RINSED CONTAINER AND RETURNED TO PT BEDSIDE.
--- NOTE | 2019-06-24 19:00 | NUR ---
SHIFT ASSESSMENT COMPELTED. PT CARE ASSUMED, MONITORS ON AND WORKING, VITALS STABLE. CALL LIGHT WITHIN REACH, PT AWAKE AND ALERT. SEE FLOW SHEET FOR FURTHER DETAILS. WILL CONTINUE TO OBSERVE.
--- NOTE | 2019-06-24 21:00 | NUR ---
LINEN CHANGE COMPLETED AND PO MEDS GIVEN AT THIS TIME, PT TOLERATED WELL, CALL LIGHT WITHIN REACH. WILL CONTINUE TO OBSERVE.
--- NOTE | 2019-06-24 23:00 | NUR ---
PT LYING IN BED RESTING. MONITORS ON AND WORKING, VITALS STABLE. CALL LIGHT WITHIN REACH, SEE FLOW SHEET FOR FURTHER DETAILS, WILL CONTINUE TO OBSERVE.
[2019-06-25] VITALS (25 sets, daily range): BP systolic 104–152; BP diastolic 65–103
--- NOTE | 2019-06-25 01:00 | NUR ---
PT LYING IN BED RESTING, MONITORS ON AND WORKING, VITALS STABLE. CALL LIGHT WITHIN REACH, WILL CONTINUE TO OBSERVE.
--- NOTE | 2019-06-25 03:00 | NUR ---
NO CHANGES, MONITORS ON AND WORKING, VITALS STABLE, CALL LIGHT WITHIN REACH, SEE FLOW SHEET FOR FURTHER DETAILS. WILL CONTINUE TO OBSERVE.
[2019-06-25 05:39] LABS: BASOPHILS 0.2 % (0-2); EOSINOPHILS 0.4 % (0-7); HEMATOCRIT 41.3 % (42.0-54.0); HEMOGLOBIN 13.1 g/dL (13.5-17.5); IMMATURE GRANULOCYTES 0.3 % (0-5); LYMPHOCYTES 12.2 % (15-50); MCH 27.8 pg (26.0-34.0); MCHC 31.7 g/dL (31.0-37.0); MCV 87.5 fL (80.0-100.0); MEAN PLATELET VOLUME 10.4 fL (7.4-10.4); MONOCYTES 6.6 % (2-11); NEUTROPHILS 80.3 % (40-80); PLATELET COUNT 202 10x3/uL (130-400); RBC 4.72 10x6/uL (4.20-6.10); RDW 14.4 % (11.5-14.5)
[2019-06-25 05:57] LABS: ANION GAP 13.8 mmol/L (8-16); CALCIUM 8.9 mg/dL (8.5-10.1); CARBON DIOXIDE 28.6 mmol/L (21.0-32.0); CREATININE - SERUM 1.2 mg/dL (0.6-1.3); POTASSIUM - SERUM 4.4 mmol/L (3.5-5.1)
[2019-06-25 06:02] LABS: WBC 11.3 10x3/uL (4.8-10.8)
--- NOTE | 2019-06-25 07:30 | NUR ---
AWAKE AND ALERT SKIN WARM AND DRY. DENIES NEED TO GO TO COASTAL/HARBOR DEFENSE OFFICER TODAY. LAUGHED AT END OF ASSESSMENT THAT HE HAD TO TRY. IV LEFT UPPER SHOULDER CHEST AREA INFUSING WITH NS AT 75 ML HOUR NO REDNESS OR SWELLING. VOIDED SMALL AMOUNT OF SY URINE IN URNIAL. BILATERAL GROIN DRESSINGS DRY AND INTACT. MONITOR PACER RHYTHM. DENIES PAIN. OXYGEN AT 2 LITERS NC. NO DISTRESS
--- NOTE | 2019-06-25 08:37 | NUR ---
ORAL CARE NO DISTRESS.
--- NOTE | 2019-06-25 09:30 | NUR ---
PO MEDS TAKEN WITHOUT DIFFICULTY. RESTING NO DISTRESS. DENIES PAIN
--- NOTE | 2019-06-25 11:02 | NUR ---
VISITORS HERE. PATIENT IN NO DISTRESS
--- NOTE | 2019-06-25 11:27 | NUR ---
family here update given
--- NOTE | 2019-06-25 11:40 | NUR ---
PATIENT TO STAFF READINESS OFFICER PER BED. AWAKE AND ALERT.
--- NOTE | 2019-06-25 12:50 | NUR ---
RETURNED TO ROOM FROM DRAWER MAKER. SLEEPY. SKIN WARM AND DRY. AWAKES TO VERBAL STIMULI. RIGHT GROIN DRESSING DRY AND INTACT. BLISTERS NOTED BOTH GROIN AREA FROM PREVIOUS TEGADERM. PEDAL PULSES PALABLE. FAMILY NOTIFIED OF PATIENT RETURN TO ROOM. IV INFUSING WITH NS AT 100 ML PER LEFT UPPER CHEST. IV LEFT FOREARM DC'D. ARM SWOLLEN. NO DISTRESS DENIES PAIN. OXYGEN AT 3 LITERS PER NC UNTIL MORE AWAKE.
--- NOTE | 2019-06-25 12:54 | OP ---
PATIENT NAME: FLORENCE FARIAS MEDICAL RECORD: [id number] :37 LOCATION:.[facility] D.2310 ADMISSION DATE:06/22/19 SURGEON: BRENDA MENENDEZ MD DATE OF OPERATION: 06/24/2019 DATE OF SERVICE: 06/24/2019 PROCEDURES: 1. PTCA stent RCA. 2. Laser atherectomy RCA. 3. Selective coronary angiography. INDICATION: Angina and coronary artery disease. PROCEDURE PERFORMED: After informed consent was obtained and after a detailed description of risks, benefits as well as alternative therapies, the patient elected to proceed with angiogram and angioplasty. The left femoral area was prepped and draped in normal sterile fashion. Left femoral artery was cannulated via modified Seldinger technique with a 7-Syriac sheath. All catheters exchanged through this sheath. FINDINGS: The right coronary has 99% stenosis in the mid vessel, 90% stenosis proximally. Proximal vessel was addressed with a 4.0 x 12 mm Iroquois. Mid vessel was addressed with the laser atherectomy, multiple passes were made with a 0.9 laser catheter at 80/40. We then ballooned this with a 3.0 and a 3.5 balloon and stented this with a 3.5 x 18 Iroquois followed by a 3.0 x 18 Iroquois. Result was 0% residual. OVERALL IMPRESSION: Successful percutaneous transluminal coronary angioplasty stent of the right coronary artery going from 99% initial stenosis to 0% residual. TRANSINT:[id number] Voice Confirmation ID: [id number] DOCUMENT ID: [id number] BRENDA MENENDEZ MD at 1254 CC: [id number] DICTATION DATE: 06/24/19 1004 HARVESTING CONTRACTOR: 06/24/19 1414 ADM IN [facility] [address] [id number]
--- NOTE | 2019-06-25 13:24 | MORECARE ---
CASE MANAGEMENT DISCHARGE SUMMARY PATIENT: FLORENCE FARIAS UNIT: [id number] ADM DATE: 06/22/19 AGE: 83 : 36 SEX: M ROOM/BED: D.2310 AUTHOR: KIERSTEN GONZALEZ PHYSICIAN: REFERRING PHYSICIAN: SOPHIA GOOD MD DATE OF SERVICE: 06/25/19 Discharge Plan Patient Name: FLORENCE [facility]ARIAS [facility] [facility] 1935 Planned Disposition: Home Anticipated Discharge Date: Discharge Date: Expected LOS: Initial Reviewer: [email or web address] Initial Review Date: 06/24/2019 Generated: 06/25/19 2:24 pm Patient Name: FLORENCE FARIAS Page [id number] at 1324 All edits/amendments must be made on the electronic document DICTATION DATE: 06/25/19 1324 POULTRY HATCHERY SUPERVISOR: JOSÉ LUIS 06/25/19 1324 RPT#: [id number] DC DATE: STATUS: ADM IN [facility] [address] [place] [address] END OF REPORT
--- NOTE | 2019-06-25 14:00 | NUR ---
STILL SLEEPY. PEDAL PULSES PALABLE. RIGHT GROING DRESSING DRY AND INTACT. NO SWELLING OR DRAINAGE RIGHT GROIN. MONITOR IN AND OUT ATRIAL FLUTTER.
--- NOTE | 2019-06-25 14:21 | MORECARE ---
CASE MANAGEMENT DISCHARGE SUMMARY PATIENT: FLORENCE FARIAS UNIT: [id number] ADM DATE: 06/22/19 AGE: 83 : 36 SEX: M ROOM/BED: D.2310 AUTHOR: CARLOSDOC PHYSICIAN: REFERRING PHYSICIAN: SOPHIA GOOD MD DATE OF SERVICE: 06/25/19 Discharge Plan Patient Name: FLORENCE FARIAS Facility: [facility]:[place] : 1935 Planned Disposition: Home Anticipated Discharge Date: Discharge Date: Expected LOS: Initial Reviewer: [email or web address] Initial Review Date: 06/24/2019 Generated: 06/25/19 3:20 pm DCP- Discharge Planning Updated by [email or web address]: Alondra James on 06/25/19 1:[address] LATE ENTRY 06/24/19 Patient Name: FLORENCE FARIAS Admission Status: ER Accout number: [id number] Admission Date: 06-22-2019 : 1935 Admission Diagnosis: Attending: SOPHIA GOOD Current LOS: 2 Anticipated DC Date: Planned Disposition: Home Primary Insurance: [place] [employer] Discharge Planning Comments: CM met with patient at bedside after explaining CM role and obtaining verbal consent. Patient lives at home with his Elva where he is independent with his care and plans to return there upon discharge. Patient feels this would be a safe discharge. CM discussed availability / needs of home health and medical equipment. Patient denies any discharge needs at this time. Patient states he will have his family drive him home upon discharge. CM will continue to follow and assist as needed with discharge planning / needs. Sheet Metal Lay Out Worker: Alondra James DCPIA - Discharge Planning Initial Assessment Updated by [email or web address]: Alondra James on 06/25/19 2:12 pm * Is the patient Alert and Oriented? Yes * How many steps to enter\exit or inside your home? * PCP Roseanne - [place] * Pharmacy [facility] * Preadmission Environment Home with Family * ADLs Independent * Other Equipment WLAKER, CRUTCHES, HOSP BED, BSC, SC, CPAP * List name and contact numbers for known caregivers / representatives who currently or will assist patient after discharge: ELVA FARIAS - SPOUSE - [phone] FLAKO VALDOVINOS [phone] * Verbal permission to speak to the caregivers and representatives has been obtained from the patient. Yes * Community resources currently utilized None * Additional services required to return to the preadmission environment? No * Can the patient safely return to the preadmission environment? Yes * Has this patient been hospitalized within the prior 30 days at any hospital? No Last DP export: 06/25/19 12:24 p Patient Name: FLORENCE FARIAS Page [id number] at 1421 All edits/amendments must be made on the electronic document DICTATION DATE: 06/25/19 142 REVENUE MANAGER: JOSÉ LUIS 06/25/19 1420 RPT#: [id number] DC DATE: STATUS: ADM IN [facility] [address] [place] [address] END OF REPORT
--- NOTE | 2019-06-25 16:00 | NUR ---
AWAKE AND ALERT LUNCH SERVED ATE FEW BITES NO DISTRESS. FAMILY AT BEDSIDE.
--- NOTE | 2019-06-25 16:30 | NUR ---
SUPER TRAY HERE ATE FEW BITES. RIGHT GROIN DRESSING DRY AND INTACT NO SWELLING OR DRAINAGE NOTED. PEDAL PULSES PALABLE. DENIES PAIN. FAMILY AT BEDSIDE. PATIENT INCONT OF URINE. LINEN CHANGE ELVA CARE DONE. PATIENT ASSIST WITH TURNING SELF. URINAL PLACED WITHIN HANDS REACH
--- NOTE | 2019-06-25 17:41 | NUR ---
RESTING COMFORTABLY NO DISTRESS.
--- NOTE | 2019-06-25 19:46 | NUR ---
PATIENT RECEIVED LYING IN BED APPROXIMATELY AT 30 DEGREES. PATIENT IS AAOX4, PLEASANT. PATIENT IS VERBAL, PLEASANT. O2 @ 2 LITERS. PATIENT HAS A DRESSING TO RIGHT GROIN FROM HAVING A "CLEAN OUT" TODAY THAT IS DRY AND INTACT, NO SWELLING NOTED TO AREA, NO REDNESS AND NO TENDERNESS WHEN PALPATED. PEDAL PULSES ARE PALPABLE, NO SWELLING TO LOWER EXTREMITIES. IV SITE TO LEFT CHEST WALL IS NOTED WITHOUT REDNESS, SWELLING OR TENDERNESS. PATIENT DENIES ANY PAIN OR NEEDS AT THIS TIME. WILL FOLLOW POC. CALL LIGHT WITHIN REACH.
--- NOTE | 2019-06-25 23:22 | NUR ---
PATIENT RESTING WELL, IV INFUSING WITHOUT DIFFICULTY, DRESSING TO RIGHT GROIN REMAINS INTACT. 02 DECREASED TO 1 LITER AT THIS TIME. WILL MONITOR
[2019-06-26 04:59] LABS: BASOPHILS 0.2 % (0-2); EOSINOPHILS 1.5 % (0-7); HEMATOCRIT 37.6 % (42.0-54.0); IMMATURE GRANULOCYTES 0.1 % (0-5); LYMPHOCYTES 14.4 % (15-50); MCH 27.8 pg (26.0-34.0); MCHC 31.9 g/dL (31.0-37.0); MCV 87.2 fL (80.0-100.0); MEAN PLATELET VOLUME 10.1 fL (7.4-10.4); MONOCYTES 7.5 % (2-11); NEUTROPHILS 76.3 % (40-80); RBC 4.31 10x6/uL (4.20-6.10); RDW 14.4 % (11.5-14.5); WBC 9.5 10x3/uL (4.8-10.8)
[2019-06-26 05:02] LABS: PLATELET COUNT 158 10x3/uL (130-400)
[2019-06-26 05:13] LABS: CALC OSMOLALITY 278 mosm/kg (275-300); CALCIUM 8.3 mg/dL (8.5-10.1); CARBON DIOXIDE 23.4 mmol/L (21.0-32.0); CHLORIDE - SERUM 104 mmol/L (98-107); GLUCOSE 98 mg/dL (74-106); SODIUM 137 mmol/L (136-145); UREA NITROGEN 27 mg/dL (7-18); eGFR NON AFRICAN AMERICAN 76 mL/min (90-120)
[2019-06-26 07:00] VITALS: BP 153/87
--- NOTE | 2019-06-26 07:39 | NUR ---
patient report received. patient is sleeping but easily aroused by voice. alert and oriented. no acute distrss. lungs cta bilat. on 1 l oxygen. got sob yesterday when getting a chg bath and was on room air so back up to 1 L. goal is to wean off. patient uses urinal. denies pain and needs at this time. palp pulses in upper and lower extremities. no s/s of hematoma. l leg was groin dressing. r leg does not. incision sites are clearly seen
--- NOTE | 2019-06-26 09:22 | NUR ---
patient finished breakfast. went back to sleep
--- NOTE | 2019-06-26 10:23 | OP ---
PATIENT NAME: FLORENCE FARIAS MEDICAL RECORD: [id number] :37 LOCATION:D.[facility] D.2310 ADMISSION DATE:06/22/19 SURGEON: BRENDA MENENDEZ MD DATE OF OPERATION: 06/25/2019 PROCEDURES: 1. PTCA stent left main. 2. PTCA stent left circumflex. 3. Selective coronary angiography. INDICATION: Angina and coronary artery disease. PROCEDURE IN DETAIL: After informed consent was obtained and after a detailed description of risks, benefits as well as alternative therapies, the patient elected to proceed with angiogram and angioplasty. The right femoral area was prepped and draped in normal sterile fashion. Right femoral artery was cannulated via modified Seldinger technique with placement of 6-Azerbaijani sheath. All catheters exchanged through this sheath. FINDINGS: The left main was 99% stenosis as well as the left circumflex. The left main was addressed with a 3.5 x 15 mm Jose Carlos, the circumflex was 2.5 x 12 mm Jose Carlos. Result was 0% residual stenosis. OVERALL IMPRESSION: Successful percutaneous transluminal coronary angioplasty stent of the left main and circumflex, both going from 95% to 99% initial stenosis to 0% residual. TRANSINT:[id number] Voice Confirmation ID: [id number] DOCUMENT ID: [id number] BRENDA MENENDEZ MD at 1023 CC: [id number] DICTATION DATE: 06/25/19 1236 B2B SALES REPRESENTATIVE: 06/25/19 1719 ADM IN [place] [id number] [place] [address]
[2019-06-26 11:00] VITALS: BP 131/88
--- NOTE | 2019-06-26 12:37 | NUR ---
Nutrition follow-up: Diet: low sodium PO Intake ~25% of meals; po intake better before heart cath Labs reviewed Wt: 198# Will continue to provide food choices and honor food preferences. Will offer nutritional supplements. RDN following.
[2019-06-26 13:10] LABS: APPEARANCE CLEAR (CLEAR); BILIRUBIN NEGATIVE (NEGATIVE); COLOR YELLOW (YELLOW); GLUCOSE NEGATIVE (NEGATIVE); KETONE SMALL mg/dL (NEGATIVE); NITRITE NEGATIVE (NEGATIVE); PROTEIN NEGATIVE (NEGATIVE); UROBILINOGEN NORMAL (NORMAL)
[2019-06-26] MEDS ORDERED: AMIODARONE HCL200 MG PO (14:32)
[2019-06-26 15:00] VITALS: BP 138/94
--- NOTE | 2019-06-26 15:53 | NUR ---
SPOKE WITH JUANA FROM [place] SAID [facility] CONTACT [facility] FARIAS REGARDING FOLLOW UP APPT
--- NOTE | 2019-06-26 16:35 | NUR ---
PATIENT DC'D VIA WHEELCHAIR.
--- NOTE | 2019-06-26 17:44 | MORECARE ---
CASE MANAGEMENT DISCHARGE SUMMARY PATIENT: FLORENCE FARIAS UNIT: [id number] ADM DATE: 06/22/19 AGE: 83 : 36 SEX: M ROOM/BED: D.2310 AUTHOR: CARLOSDOC PHYSICIAN: REFERRING PHYSICIAN: SOPHIA GOOD MD DATE OF SERVICE: 06/26/19 Discharge Plan Patient Name: FLORENCE FARIAS Facility: [facility]:[place] : 1935 Planned Disposition: Home Anticipated Discharge Date: Discharge Date: 06/26/2019 Expected LOS: Initial Reviewer: [email or web address] Initial Review Date: 06/24/2019 Generated: 06/26/19 6:44 pm DCP- Discharge Planning Updated by [email or web address]: Alondra James on 06/25/19 1:[address] LATE ENTRY 06/24/19 Patient Name: FLORENCE FARIAS Admission Status: ER Accout number: [id number] Admission Date: 06-22-2019 : 1935 Admission Diagnosis: Attending: SOPHIA GOOD Current LOS: 2 Anticipated DC Date: Planned Disposition: Home Primary Insurance: [place] [employer] CHOICE Discharge Planning Comments: CM met with patient at bedside after explaining CM role and obtaining verbal consent. Patient lives at home with his Elva where he is independent with his care and plans to return there upon discharge. Patient feels this would be a safe discharge. CM discussed availability / needs of home health and medical equipment. Patient denies any discharge needs at this time. Patient states he will have his family drive him home upon discharge. CM will continue to follow and assist as needed with discharge planning / needs. Tubing Supervisor: Alondra James DCPIA - Discharge Planning Initial Assessment Updated by [email or web address]: Alondra James on 06/25/19 2:12 pm * Is the patient Alert and Oriented? Yes * How many steps to enter\exit or inside your home? * PCP Roseanne - [place] * Pharmacy [facility] * Preadmission Environment Home with Family * ADLs Independent * Other Equipment WLAKER, CRUTCHES, HOSP BED, BSC, SC, CPAP * List name and contact numbers for known caregivers / representatives who currently or will assist patient after discharge: ELVA FARIAS - SPOUSE - [phone] FLAKO - DAUGHTER- [phone] * Verbal permission to speak to the caregivers and representatives has been obtained from the patient. Yes * Community resources currently utilized None * Additional services required to return to the preadmission environment? No * Can the patient safely return to the preadmission environment? Yes * Has this patient been hospitalized within the prior 30 days at any hospital? No Last DP export: 06/25/19 1:21 p Patient Name: FLORENCE FARIAS Page 00148 at 1744 All edits/amendments must be made on the electronic document DICTATION DATE: 06/26/191743 EAR MOLD LABORATORY TECHNICIAN: JOSÉ LUIS 06/26/191743 RPT#: [id number] CO DATE:06/26/19 STATUS: DIS IN [facility] [address] [place] [address] END OF REPORT
== END 2019-06-26 16:35 | disposition home or self-care (01) | DRG 246 ==
LOC: D.ER 21:11 → D.ICU 21:47
PROVIDERS: Family Medicine; Internal Medicine Cardiovascular Disease; Internal Medicine Interventional Cardiology; ADMIT Internal Medicine Nephrology; ATTEND Internal Medicine Nephrology
PROC: B2131ZZ Fluoroscopy of Multiple Coronary Artery Bypass Grafts using Low Osmolar Contrast (ICD-10-PCS; 2019-06-23)
PROC: B2151ZZ Fluoroscopy of Left Heart using Low Osmolar Contrast (ICD-10-PCS; 2019-06-23)
PROC: 4A023N7 Measurement of Cardiac Sampling and Pressure, Left Heart, Percutaneous Approach (ICD-10-PCS; 2019-06-23)
PROC: 02C03ZZ Extirpation of Matter from Coronary Artery, One Artery, Percutaneous Approach (ICD-10-PCS; 2019-06-24)
PROC: 027036Z Dilation of Coronary Artery, One Artery with Three Drug-eluting Intraluminal Devices, Percutaneous Approach (ICD-10-PCS; principal; 2019-06-24 08:00)
PROC: 027135Z Dilation of Coronary Artery, Two Arteries with Two Drug-eluting Intraluminal Devices, Percutaneous Approach (ICD-10-PCS; 2019-06-25)
DX: I21.4 Non-ST elevation (NSTEMI) myocardial infarction (principal); N17.9 Acute kidney failure, unspecified; I50.22 Chronic systolic (congestive) heart failure; D64.9 Anemia, unspecified; E78.5 Hyperlipidemia, unspecified; I25.10 Atherosclerotic heart disease of native coronary artery without angina pectoris; I11.0 Hypertensive heart disease with heart failure; N40.0 Benign prostatic hyperplasia without lower urinary tract symptoms; G62.9 Polyneuropathy, unspecified